=== PATIENT | male | born 1970 | race Caucasian/White ===

== ENCOUNTER 2017-11-06 09:34 | Emergency (ER) | payer MEDICAID ==
[~2017-11-06] VITALS: Ht 170.2 cm; Wt 86.2 kg
[2017-11-06] MEDS ORDERED: BP PILL PO (09:42)
--- NOTE | 2017-11-06 09:50 | NUR ---
PT ARRIVED IN RM 2A WITH A CHIEF C/O LOWER BACKPAIN LEVEL 10, PT STATED THAT ITS RELATED TO HIS GALLBLADDER STONE. AWAKE AND ORIENTEDX3. SEEN AND EXAMINED BY DR SALDAÑA WITH NEW ORDERS.
[2017-11-06] MEDS ORDERED: ONDANSETRON 4 MG/2 ML VIAL IV ONE (10:00)
[2017-11-06] MEDS ORDERED: IV NORMAL SALINE 1000 ML BAG IV ONE (10:00)
[2017-11-06] MEDS ORDERED: MORPHINE SULFATE 2 MG/1 ML DISP.SYRIN IV ONE (10:00)
--- NOTE | 2017-11-06 10:10 | NUR ---
STARTED IV LINE G20 ON THE RIGHT FA AND IVF NS ORDERED.
[2017-11-06] MEDS ORDERED: MORPHINE SULFATE 4 MG/1 ML DISP.SYRIN ONE (10:13)
[2017-11-06] MEDS ORDERED: ONDANSETRON 4 MG/2 ML VIAL ONE (10:13)
--- NOTE | 2017-11-06 10:20 | NUR ---
MEDICATED WITH MORPHINE 4MG SLOW IVP AND ZOFRAN 4MG SLOW IVP FOR PAIN AND N/V PER MD ORDER. LABS DRAWN AND US ABDOMEN DONE AT THE BEDSIDE.
[2017-11-06 10:26] LABS: BASOPHILS % (AUTO) 0.6 % (0.0-2.0); EOSINOPHILS # (AUTO) 0.1 K/uL (0.0-0.7); HEMOGLOBIN 14.4 g/dL (12.5-16.3); LYMPHOCYTES # (AUTO) 1.5 K/uL (20.0-40.0); MEAN CORPUSCULAR HEMOGLOBIN 32.9 uug (23.8-33.4); MEAN CORPUSCULAR HGB CONC 34 g/dL (32.5-36.3); MEAN CORPUSCULAR VOLUME 96.2 fL (73.0-96.2); MONOCYTES # (AUTO) 0.5 K/uL (2.0-10.0); MONOCYTES % (AUTO) 6.5 % (0.0-11.0); NEUTROPHILS # (AUTO) 5.6 K/uL (1.8-8.9); NEUTROPHILS % (AUTO) 72.9 % (38.5-71.5); PLATELET COUNT (AUTO) 277 K/uL (152-348); RED BLOOD CELL COUNT(AUTO) 4.37 MIL/uL (4.06-5.63); WHITE BLOOD COUNT (AUTO) 7.8 K/uL (3.6-10.2)
[2017-11-06 10:38] LABS: BILIRUBIN,DIRECT 0.1 mg/dL (0.0-0.2); BILIRUBIN,TOTAL 0.3 mg/dL (0.2-1.0); CREATININE 0.8 mg/dL (0.6-1.3); ETHANOL < 3 MG/DL (0-0); TOTAL PROTEIN, SERUM 7.2 g/dL (6.4-8.2)
--- NOTE | 2017-11-06 11:30 | NUR ---
PT IS SLEEPING COMFORTABLY. PAIN IS RELIEVED. UA NOT DONE. PT DOES NOT FEEL GOING TO THE BATHROOM.
--- NOTE | 2017-11-06 12:20 | NUR ---
PT REFUSED TO BE ADMITTED AND WATED TO GO HOME AGAINST MEDICAL ADVICE.
[2017-11-06 12:25] VITALS: BP 140/68
--- NOTE | 2017-11-06 12:25 | NUR ---
DISCHARGED AMA, AMBULATORY.
== END 2017-11-06 12:25 | disposition left against medical advice (07) ==
LOC: ER 09:34
DX: K80.50 Calculus of bile duct without cholangitis or cholecystitis without obstruction (principal); I10 Essential (primary) hypertension; Z79.899 Other long term (current) drug therapy
CPT/HCPCS: 36415; 76705; 80048; 80076; 83690; 85025; 93005; 96361; 96374; 96375; 99285; A4663; G0480; J2270; J2405

== ENCOUNTER 2018-05-13 08:01 | Emergency (ER) | payer SELFPAY ==
[~2018-05-13] VITALS: Ht 170.2 cm; Wt 86.2 kg
[~2018-05-13 08:01] MED LIST: BP PILL PO
[2018-05-13] MEDS ORDERED: IOHEXOL 300MG/ML 100 ML INFUS..BTL ONE (08:28)
[2018-05-13] MEDS ORDERED: IV NORMAL SALINE 250 ML IV ONE (08:28)
[2018-05-13] MEDS ORDERED: SWABABLE VALVE TRANSFER SET EA MC ONE (08:28)
[2018-05-13] MEDS ORDERED: IV NORMAL SALINE 1000 ML BAG IV ONE (08:30)
[2018-05-13] MEDS ORDERED: MORPHINE SULFATE 2 MG/1 ML DISP.SYRIN IV ONE (08:30)
[2018-05-13] MEDS ORDERED: ONDANSETRON 4 MG/2 ML VIAL IV ONE (08:30)
[2018-05-13] MEDS ORDERED: ONDANSETRON 4 MG/2 ML VIAL ONE (08:35)
[2018-05-13] MEDS ORDERED: MORPHINE SULFATE 4 MG/1 ML DISP.SYRIN ONE (08:35)
[2018-05-13 08:37] LABS: BASOPHILS % (AUTO) 0.5 % (0.0-2.0); EOSINOPHILS % (AUTO) 0.5 % (0.0-7.0); HEMATOCRIT 41.5 % (36.7-47.1); HEMOGLOBIN 14.7 g/dL (12.5-16.3); LYMPHOCYTES # (AUTO) 0.6 K/uL (20.0-40.0); LYMPHOCYTES % (AUTO) 5.6 % (20.5-51.5); MEAN CORPUSCULAR HEMOGLOBIN 34.1 uug (23.8-33.4); MEAN CORPUSCULAR HGB CONC 36 g/dL (32.5-36.3); MEAN CORPUSCULAR VOLUME 96.2 fL (73.0-96.2); MONOCYTES # (AUTO) 0.4 K/uL (2.0-10.0); MONOCYTES % (AUTO) 4.4 % (0.0-11.0); NEUTROPHILS # (AUTO) 8.7 K/uL (1.8-8.9); PLATELET COUNT (AUTO) 259 K/uL (152-348); RED BLOOD CELL COUNT(AUTO) 4.32 MIL/uL (4.06-5.63); WHITE BLOOD COUNT (AUTO) 9.8 K/uL (3.6-10.2)
[2018-05-13 08:44] LABS: CREATININE 0.9 mg/dL (0.6-1.3); POTASSIUM 3.5 mmol/L (3.5-5.1)
[2018-05-13 08:50] LABS: BILIRUBIN,DIRECT 0.2 mg/dL (0.0-0.2); BILIRUBIN,TOTAL 0.4 mg/dL (0.2-1.0); TOTAL PROTEIN, SERUM 7.1 g/dL (6.4-8.2)
--- NOTE | 2018-05-13 09:39 | NUR ---
Patient discharged to home in stable conditon. Written and verbal after care instructions given. Patient verbalizes understanding of instructions.pt walks in steadty gait, relief of pain and nausea. pt not driving.
[2018-05-13 09:41] VITALS: BP 159/89
== END 2018-05-13 09:42 | disposition home or self-care (01) ==
LOC: ER 08:01
DX: I10 Essential (primary) hypertension (principal); Z90.49 Acquired absence of other specified parts of digestive tract
CPT/HCPCS: 36415; 74177; 80048; 80076; 83690; 84484; 85025; 85730; 93005; 96361; 96374; 96375; 99284; J2270; J2405; Q9967; 70030-TC; A4663; J7030; J7050

== ENCOUNTER 2018-08-18 22:22 | Emergency (ER) | payer MEDICAID ==
[~2018-08-18] VITALS: Ht 175.3 cm; Wt 86.2 kg
--- NOTE | 2018-08-18 22:49 | NUR ---
Dr. Kc at bedside for MSE.
[2018-08-18] MEDS ORDERED: LABETALOL HCL 100 MG/20 ML VIAL IV ONE (23:00)
[2018-08-18] MEDS ORDERED: MORPHINE SULFATE 4 MG/1 ML DISP.SYRIN IV ONE (23:00)
[2018-08-18] MEDS ORDERED: ONDANSETRON 4 MG/2 ML VIAL IV ONE (23:00)
[2018-08-18] MEDS ORDERED: LABETALOL HCL 100 MG/20 ML VIAL ONE (23:00)
[2018-08-18] MEDS ORDERED: MORPHINE SULFATE 4 MG/1 ML DISP.SYRIN ONE (23:09)
[2018-08-18] MEDS ORDERED: ONDANSETRON 4 MG/2 ML VIAL ONE (23:09)
[2018-08-18] MEDS ORDERED: hydrALAZINE HCL 20 MG/1 ML VIAL ONE ×2 (23:15→23:28)
[2018-08-18] MEDS ORDERED: hydrALAZINE HCL 20 MG/1 ML VIAL IV ONE ×2 (23:15→23:30)
[2018-08-18 23:23] LABS: BASOPHILS % (AUTO) 0.5 % (0.0-2.0); EOSINOPHILS # (AUTO) 0.1 K/uL (0.0-0.7); EOSINOPHILS % (AUTO) 0.9 % (0.0-7.0); HEMATOCRIT 47.1 % (36.7-47.1); HEMOGLOBIN 16.4 g/dL (12.5-16.3); LYMPHOCYTES % (AUTO) 23.2 % (20.5-51.5); MEAN CORPUSCULAR HEMOGLOBIN 33.2 uug (23.8-33.4); MEAN CORPUSCULAR HGB CONC 35 g/dL (32.5-36.3); MEAN CORPUSCULAR VOLUME 95.5 fL (73.0-96.2); MONOCYTES # (AUTO) 0.7 K/uL (2.0-10.0); MONOCYTES % (AUTO) 7.8 % (0.0-11.0); NEUTROPHILS # (AUTO) 5.8 K/uL (1.8-8.9); NEUTROPHILS % (AUTO) 67.6 % (38.5-71.5); PLATELET COUNT (AUTO) 269 K/uL (152-348); RED BLOOD CELL COUNT(AUTO) 4.93 MIL/uL (4.06-5.63); WHITE BLOOD COUNT (AUTO) 8.5 K/uL (3.6-10.2)
[2018-08-18 23:36] LABS: BILIRUBIN,DIRECT 0.2 mg/dL (0.0-0.2); BILIRUBIN,TOTAL 0.6 mg/dL (0.2-1.0); CREATININE 0.9 mg/dL (0.6-1.3); POTASSIUM 3.6 mmol/L (3.5-5.1); TOTAL PROTEIN, SERUM 8.1 g/dL (6.4-8.2)
[2018-08-18] MEDS ORDERED: IOHEXOL 300MG/ML 100 ML INFUS..BTL ONE (23:47)
[2018-08-18] MEDS ORDERED: SWABABLE VALVE TRANSFER SET EA MC ONE (23:47)
[2018-08-18] MEDS ORDERED: IV NORMAL SALINE 250 ML IV ONE (23:47)
--- NOTE | 2018-08-18 23:54 | NUR ---
Pt out of ER for CT.
--- NOTE | 2018-08-19 00:13 | NUR ---
Pt back to ER from CT.
[2018-08-19] MEDS ORDERED: MORPHINE SULFATE 4 MG/1 ML DISP.SYRIN ONE (00:21)
[2018-08-19] MEDS ORDERED: MORPHINE SULFATE 4 MG/1 ML DISP.SYRIN IV ONE (00:30)
[2018-08-19] MEDS ORDERED: LABETALOL HCL 100 MG/20 ML VIAL ONE (00:37)
[2018-08-19] MEDS ORDERED: LABETALOL HCL 100 MG/20 ML VIAL IV ONE (00:45)
--- NOTE | 2018-08-19 00:58 | NUR ---
Pt provided urine sample, sent to lab.
[2018-08-19 01:06] LABS: *BILIRUBIN,URIN NEGATIVE (NEGATIVE); *BLOOD, URINE NEGATIVE (NEGATIVE); *CLARITY,URINE CLEAR (CLEAR); *COLOR,URINE YELLOW (YELLOW); *KETONES,URINE NEGATIVE (NEGATIVE); *UROBILINOGEN,URINE 0.2 E.U./dl (NORMAL); LEUKOCYTE ESTERASE ,URINE NEGATIVE (NEGATIVE); NITRITE, URINE NEGATIVE (NEGATIVE); PH,URINE 7.5 (5.0-8.0); UGLUCOSE NEGATIVE (NEGATIVE)
[2018-08-19 01:13] LABS: BACTERIA,URINE NONE SEEN /HPF (NONE SEEN); RBC,URINE 0-3 /HPF (0-3); SQUAMOUS EPITHELIAL CELL,UR FEW /HPF (NONE SEEN); WBC,URINE 0-3 /HPF (0-3)
--- NOTE | 2018-08-19 01:52 | NUR ---
Patient discharged to home in stable conditon. Written and verbal after care instructions given. Patient verbalizes understanding of instructions. Pt ambulated out of ER with steady gait, no acute signs of distress, VSS, all belongings taken, IV site discontinued, pt provided with copies of diagnostic procedure results and a CD of CTA results.
[2018-08-19 01:54] VITALS: BP 132/82
== END 2018-08-19 01:54 | disposition home or self-care (01) ==
LOC: ER 22:23
DX: I16.0 Hypertensive urgency (principal); M54.9 Dorsalgia, unspecified; Z90.49 Acquired absence of other specified parts of digestive tract
CPT/HCPCS: 36415; 71275; 72191; 74175; 80048; 80076; 81001; 83690; 84484; 85025; 85730; 86850; 86900; 86901; 93005; 96374; 96375; 96376; 99284; J0360 ×2; J2270 ×2; J2405; J3490 ×2; Q9967; 70030-TC; A4663; J7050

== ENCOUNTER 2018-09-17 20:49 | Emergency (ER) | payer MEDICAID ==
[~2018-09-17] VITALS: Ht 177.8 cm; Wt 83.9 kg
--- NOTE | 2018-09-17 21:00 | NUR ---
Patient came to Er with chief complain of Hypertension. Per Patient he felt diffiferent in the past 2-3 hours and reported Hx of HTN. Patient also with complain of abdominal pain on left upper quadrant. Patient AAOx4. Can speak in full sentences. Denies any respiratory distress. Denies any CP/N/V. No /GI concern. Bed on low and lock position. Safety and fall precaution initiated.
--- NOTE | 2018-09-17 21:08 | NUR ---
LEODAN HOYT at [facility] for MSE.
[2018-09-17] MEDS ORDERED: NITROGLYCERIN 0.4 MG/TAB BOTTLE SL ONE ×2 (21:15→21:25)
[2018-09-17] MEDS ORDERED: NITROGLYCERIN OINT 1 GM PACKET TP ONE ×2 (21:15→21:24)
[2018-09-17] MEDS ORDERED: ONDANSETRON 4 MG/2 ML VIAL IV ONE (21:15)
[2018-09-17] MEDS ORDERED: ASPIRIN 81 MG TAB.CHEW PO ONE (21:15)
[2018-09-17] MEDS ORDERED: OXYCODONE/APAP 5-325 MG TABLET PO ONE (21:15)
[2018-09-17] MEDS ORDERED: CLONIDINE HCL 0.1 MG TABLET PO ONE ×2 (21:15→22:45)
[2018-09-17] MEDS ORDERED: ASPIRIN 81 MG TAB.CHEW ONE (21:24)
[2018-09-17] MEDS ORDERED: OXYCODONE/APAP 5-325 MG TABLET ONE (21:25)
[2018-09-17] MEDS ORDERED: ONDANSETRON 4 MG/2 ML VIAL ONE (21:25)
[2018-09-17] MEDS ORDERED: CLONIDINE HCL 0.1 MG TABLET ONE ×2 (21:25→22:47)
--- NOTE | 2018-09-17 21:25 | NUR ---
CXR done at bedside.
--- NOTE | 2018-09-17 21:34 | NUR ---
Patient refused to take Zofran and Percocet. ER made aware.
[2018-09-17 21:35] LABS: BASOPHILS # (AUTO) 0.1 K/uL (0.0-8.0); BASOPHILS % (AUTO) 0.7 % (0.0-2.0); EOSINOPHILS % (AUTO) 0.2 % (0.0-7.0); HEMATOCRIT 43.7 % (36.7-47.1); HEMOGLOBIN 15.1 g/dL (12.5-16.3); LYMPHOCYTES % (AUTO) 30.2 % (20.5-51.5); MEAN CORPUSCULAR HEMOGLOBIN 32.9 uug (23.8-33.4); MEAN CORPUSCULAR HGB CONC 35 g/dL (32.5-36.3); MEAN CORPUSCULAR VOLUME 95.3 fL (73.0-96.2); MONOCYTES # (AUTO) 0.7 K/uL (2.0-10.0); NEUTROPHILS # (AUTO) 6.1 K/uL (1.8-8.9); NEUTROPHILS % (AUTO) 61.9 % (38.5-71.5); PLATELET COUNT (AUTO) 255 K/uL (152-348); RED BLOOD CELL COUNT(AUTO) 4.59 MIL/uL (4.06-5.63); WHITE BLOOD COUNT (AUTO) 9.9 K/uL (3.6-10.2)
[2018-09-17 21:36] LABS: CREATININE 0.9 mg/dL (0.6-1.3); POTASSIUM 3.6 mmol/L (3.5-5.1)
[2018-09-17 21:49] LABS: BILIRUBIN,DIRECT 0.2 mg/dL (0.0-0.2); BILIRUBIN,TOTAL 0.6 mg/dL (0.2-1.0); TOTAL PROTEIN, SERUM 7.6 g/dL (6.4-8.2)
[2018-09-17] MEDS ORDERED: LABETALOL HCL 100 MG/20 ML VIAL ONE (22:15)
[2018-09-17] MEDS ORDERED: LORAZEPAM 2 MG/1 ML VIAL ONE (22:15)
[2018-09-17] MEDS ORDERED: LABETALOL HCL 100 MG/20 ML VIAL IV ONE (22:15)
[2018-09-17] MEDS ORDERED: LORAZEPAM 2 MG/1 ML VIAL IV ONE (22:15)
--- NOTE | 2018-09-17 23:00 | NUR ---
Patient resting in bed. Denies any CP or SOB. Pain on abdminal area left upper quadrant tolerable at this time per patient. In no respiratory distress. Continue to monitor.
--- NOTE | 2018-09-18 00:20 | NUR ---
Education Dean at bedside for blood draw. Patient remains AAOX4. In no respiratory distress. Denies any SOB or CP at this time.
--- NOTE | 2018-09-18 01:12 | NUR ---
IV removed. Catheter intact and site benign. Pressure and 4x4 gauze applied to site. No bleeding noted.
--- NOTE | 2018-09-18 01:17 | NUR ---
Patient discharged to home in stable conditon with no distress noted. Written and verbal after care instructions given. Patient verbalizes understanding of instructions. Walked out of ER with no distress noted
[2018-09-18 01:18] VITALS: BP 152/93
== END 2018-09-18 01:22 | disposition home or self-care (01) ==
LOC: ER 20:49
DX: I10 Essential (primary) hypertension (principal); R07.89 Other chest pain; Z90.49 Acquired absence of other specified parts of digestive tract
CPT/HCPCS: 36415 ×2; 71045; 80048; 80076; 83880; 84484 ×2; 85025; 93005; 96374; 96375; 99284; J2060; J3490; 70030-TC; A4663; J2405

== ENCOUNTER 2018-09-20 01:05 | Emergency (ER) | payer MEDICAID ==
[~2018-09-20] VITALS: Ht 170.2 cm; Wt 79.4 kg
--- NOTE | 2018-09-20 01:10 | NUR ---
Received pt. in bed 4A A/O x 4 speaks marcio in full complete sentences. Lying supine on gurney with HOB elevated 45 degrees. Stated to this flex o writer operator that he was here on 09/18/18 and now he has lower back pain for the past 2 hours and stated that he has gallstones. His pain is constant and sharp /10. Awaiting to be seen by Dr. Thompson.
[2018-09-20] MEDS ORDERED: CLON0.1T PO (01:23)
[2018-09-20] MEDS ORDERED: IV NORMAL SALINE 1000 ML BAG IV ONE (02:00)
[2018-09-20] MEDS ORDERED: HYDROMORPHONE 1 MG/1 ML DISP.SYRIN IV ONE (02:00)
[2018-09-20] MEDS ORDERED: ONDANSETRON 4 MG/2 ML VIAL IV ONE (02:00)
[2018-09-20 02:11] LABS: BASOPHILS % (AUTO) 0.6 % (0.0-2.0); EOSINOPHILS # (AUTO) 0.1 K/uL (0.0-0.7); EOSINOPHILS % (AUTO) 1.6 % (0.0-7.0); HEMOGLOBIN 14.5 g/dL (12.5-16.3); LYMPHOCYTES # (AUTO) 2.6 K/uL (20.0-40.0); LYMPHOCYTES % (AUTO) 35.3 % (20.5-51.5); MEAN CORPUSCULAR HGB CONC 35 g/dL (32.5-36.3); MEAN CORPUSCULAR VOLUME 95.5 fL (73.0-96.2); MONOCYTES # (AUTO) 0.6 K/uL (2.0-10.0); MONOCYTES % (AUTO) 7.8 % (0.0-11.0); NEUTROPHILS # (AUTO) 4.1 K/uL (1.8-8.9); NEUTROPHILS % (AUTO) 54.7 % (38.5-71.5); PLATELET COUNT (AUTO) 197 K/uL (152-348); WHITE BLOOD COUNT (AUTO) 7.4 K/uL (3.6-10.2)
[2018-09-20] MEDS ORDERED: HYDROMORPHONE 1 MG/1 ML DISP.SYRIN ONE (02:24)
[2018-09-20] MEDS ORDERED: ONDANSETRON 4 MG/2 ML VIAL ONE (02:24)
[2018-09-20 02:33] LABS: ALANINE AMINOTRANSFERASE 72 U/L (16-63); ALKALINE PHOSPHATASE 82 U/L (50-136); ASPARTATE AMINOTRANSFERASE 30 U/L (15-37); BILIRUBIN,DIRECT 0.2 mg/dL (0.0-0.2); BILIRUBIN,TOTAL 0.5 mg/dL (0.2-1.0); CARBON DIOXIDE 26 mmol/L (21-32); CHLORIDE 106 mmol/L (98-107); CREATININE 0.6 mg/dL (0.6-1.3); GLUCOSE 111 mg/dL (74-106); LIPASE 176 U/L (73-393); POTASSIUM 4.2 mmol/L (3.5-5.1); UREA NITROGEN, BLOOD 9 mg/dL (7-18)
[2018-09-20] MEDS ORDERED: hydrALAZINE HCL 20 MG/1 ML VIAL IV ONE (02:45)
[2018-09-20] MEDS ORDERED: LABETALOL HCL 100 MG/20 ML VIAL IV ONE (02:45)
[2018-09-20 02:56] VITALS: BP 206/123
[2018-09-20] MEDS ORDERED: hydrALAZINE HCL 20 MG/1 ML VIAL ONE (02:59)
[2018-09-20] MEDS ORDERED: LABETALOL HCL 100 MG/20 ML VIAL ONE (02:59)
--- NOTE | 2018-09-20 03:00 | NUR ---
Pt stated he has 2/[address] back now and Dr[address] Thompson informed of current B/P and pulse readings before and after medications given at 0255 and at 0256 refer to eMAR please. Pt. is A/O x 4 speaking clearly in full complete sentences.
== END 2018-09-20 03:45 | disposition home or self-care (01) ==
LOC: ER 01:07
DX: I16.0 Hypertensive urgency (principal); Z90.49 Acquired absence of other specified parts of digestive tract; Z79.899 Other long term (current) drug therapy
CPT/HCPCS: 36415; 80048; 80076; 83690; 84484; 85025; 85730; 93005; 96374; 96375; 99284; J0360; J1170; J2405; J3490; 70030-TC; A4663; J7030

== ENCOUNTER 2019-05-30 23:42 | Emergency (ER) | payer MEDICAID ==
[~2019-05-30] VITALS: Ht 170.2 cm; Wt 86.2 kg
[~2019-05-30 23:42] MED LIST changes: -BP PILL PO; +CLON0.1T PO
--- NOTE | 2019-05-31 00:14 | NUR ---
Dr. Fierro at bedside for MSE.
[2019-05-31] MEDS ORDERED: CLONIDINE HCL 0.1 MG TABLET PO ONE ×2 (00:15→03:30)
[2019-05-31] MEDS ORDERED: ONDANSETRON 4 MG/2 ML VIAL IV ONE (00:15)
[2019-05-31] MEDS ORDERED: NITROGLYCERIN 0.4 MG/TAB BOTTLE SL ONE ×2 (00:15→00:37)
[2019-05-31] MEDS ORDERED: HYDROMORPHONE 1 MG/1 ML DISP.SYRIN IV ONE (00:15)
[2019-05-31 00:35] LABS: BASOPHILS # (AUTO) 0.1 K/uL (0.0-8.0); BASOPHILS % (AUTO) 0.9 % (0.0-2.0); EOSINOPHILS % (AUTO) 0.4 % (0.0-7.0); HEMATOCRIT 41.8 % (36.7-47.1); HEMOGLOBIN 14.4 g/dL (12.5-16.3); LYMPHOCYTES # (AUTO) 3.7 K/uL (20.0-40.0); LYMPHOCYTES % (AUTO) 30.9 % (20.5-51.5); MEAN CORPUSCULAR HEMOGLOBIN 32.9 uug (23.8-33.4); MEAN CORPUSCULAR HGB CONC 34 g/dL (32.5-36.3); MEAN CORPUSCULAR VOLUME 95.7 fL (73.0-96.2); MONOCYTES # (AUTO) 0.9 K/uL (2.0-10.0); MONOCYTES % (AUTO) 7.6 % (0.0-11.0); NEUTROPHILS # (AUTO) 7.3 K/uL (1.8-8.9); NEUTROPHILS % (AUTO) 60.2 % (38.5-71.5); PLATELET COUNT (AUTO) 243 K/uL (152-348); RED BLOOD CELL COUNT(AUTO) 4.37 MIL/uL (4.06-5.63); WHITE BLOOD COUNT (AUTO) 12.1 K/uL (3.6-10.2)
[2019-05-31] MEDS ORDERED: ONDANSETRON 4 MG/2 ML VIAL ONE (00:36)
[2019-05-31] MEDS ORDERED: HYDROMORPHONE 1 MG/1 ML DISP.SYRIN ONE (00:36)
[2019-05-31] MEDS ORDERED: CLONIDINE HCL 0.1 MG TABLET ONE ×2 (00:37→03:40)
[2019-05-31 01:03] LABS: BILIRUBIN,DIRECT 0.2 mg/dL (0.0-0.2); BILIRUBIN,TOTAL 0.8 mg/dL (0.2-1.0); CREATININE 0.7 mg/dL (0.6-1.3); TOTAL PROTEIN, SERUM 8.2 g/dL (6.4-8.2)
--- NOTE | 2019-05-31 01:15 | NUR ---
Ultrasound at bedside.
[2019-05-31 01:16] LABS: POTASSIUM 2.8 mmol/L (3.5-5.1)
[2019-05-31] MEDS ORDERED: IV NORMAL SALINE 250 ML IV ONE (01:41)
[2019-05-31] MEDS ORDERED: IOHEXOL 350 100 ML INFUS..BTL ONE (01:41)
[2019-05-31] MEDS ORDERED: SWABABLE VALVE TRANSFER SET EA MC ONE (01:41)
--- NOTE | 2019-05-31 01:55 | NUR ---
Pt out of ER for CT.
--- NOTE | 2019-05-31 02:10 | NUR ---
Pt back to ER from CT.
[2019-05-31] MEDS ORDERED: POTASSIUM CHLORIDE 20 MEQ TAB.PRT.SR PO ONE (02:15)
[2019-05-31] MEDS ORDERED: POTASSIUM CHLORIDE 20 MEQ TAB.PRT.SR ONE (02:25)
[2019-05-31] MEDS ORDERED: ENALAPRILAT DIHYDRATE 1.25 MG/1 ML VIAL IV ONE ×2 (03:30→03:40)
--- NOTE | 2019-05-31 04:31 | NUR ---
Patient discharged to home in stable conditon. Written and verbal after care instructions given. Patient verbalizes understanding of instructions. Pt ambulated out of ER with steady gait, no acute signs of distress, VSS, all belongings taken, IV site discontinued.
[2019-05-31 04:32] VITALS: BP 167/96
== END 2019-05-31 04:32 | disposition home or self-care (01) ==
LOC: ER 23:45
DX: K80.50 Calculus of bile duct without cholangitis or cholecystitis without obstruction (principal); I10 Essential (primary) hypertension; Z90.49 Acquired absence of other specified parts of digestive tract; Z79.899 Other long term (current) drug therapy
CPT/HCPCS: 36415; 71275; 74175; 76705; 80048; 80076; 83690; 84484 ×2; 85025; 85730; 93005; 96374; 96375; 99284; J1170; J2405; J3490; Q9967; 70030-TC; A4663; J7050

== ENCOUNTER 2020-01-02 05:55 | Inpatient (IN) | payer MEDICAID ==
[~2020-01-02] VITALS: Ht 170.2 cm; Wt 99.3 kg
--- NOTE | 2020-01-02 06:10 | NUR ---
Patient walked into ER c/o back pain radiating to abdominal pain that started 3hrs with hypertension. Patient denies CP, SOB, N/V.
[2020-01-02] MEDS ORDERED: KETOROLAC TROMETHAMINE 15 MG INJ ONE (06:29)
[2020-01-02] MEDS ORDERED: CLONIDINE HCL 0.1 MG TABLET ONE (06:29)
[2020-01-02] MEDS ORDERED: IV NORMAL SALINE 1000 ML BAG IV ONE ×2 (06:30→08:45)
[2020-01-02] MEDS ORDERED: CLONIDINE HCL 0.1 MG TABLET PO ONE (06:30)
[2020-01-02] MEDS ORDERED: HYDROMORPHONE 1 MG/1 ML DISP.SYRIN IV ONE (06:30)
[2020-01-02] MEDS ORDERED: ONDANSETRON 4 MG/2 ML VIAL ONE ×3 (06:30→11:23)
[2020-01-02] MEDS ORDERED: KETOROLAC TROMETHAMINE 15 MG INJ IVP ONE (06:30)
[2020-01-02] MEDS ORDERED: HYDROMORPHONE 1 MG/1 ML DISP.SYRIN ONE (06:30)
[2020-01-02] MEDS ORDERED: ONDANSETRON 4 MG/2 ML VIAL IV ONE ×3 (06:30→11:30)
[2020-01-02 06:42] LABS: BASOPHILS # (AUTO) 0.1 K/uL (0.0-8.0); BASOPHILS % (AUTO) 0.8 % (0.0-2.0); EOSINOPHILS % (AUTO) 0.2 % (0.0-7.0); HEMATOCRIT 42.7 % (36.7-47.1); HEMOGLOBIN 14.8 g/dL (12.5-16.3); LYMPHOCYTES # (AUTO) 2.2 K/uL (20.0-40.0); LYMPHOCYTES % (AUTO) 21.6 % (20.5-51.5); MEAN CORPUSCULAR HEMOGLOBIN 33.3 uug (23.8-33.4); MEAN CORPUSCULAR HGB CONC 35 g/dL (32.5-36.3); MEAN CORPUSCULAR VOLUME 96.2 fL (73.0-96.2); MONOCYTES # (AUTO) 0.5 K/uL (2.0-10.0); NEUTROPHILS # (AUTO) 7.2 K/uL (1.8-8.9); NEUTROPHILS % (AUTO) 72.4 % (38.5-71.5); PLATELET COUNT (AUTO) 296 K/uL (152-348); RED BLOOD CELL COUNT(AUTO) 4.44 MIL/uL (4.06-5.63)
--- NOTE | 2020-01-02 06:44 | NUR ---
BP on left arm at this time is 212/128. ERMD aware.
[2020-01-02] MEDS ORDERED: LABETALOL HCL 100 MG/20 ML VIAL IV ONE ×3 (06:45→07:30)
[2020-01-02] MEDS ORDERED: LABETALOL HCL 100 MG/20 ML VIAL ONE ×3 (06:46→07:28)
[2020-01-02 06:53] LABS: CREATININE 0.9 mg/dL (0.6-1.3); POTASSIUM 3.2 mmol/L (3.5-5.1)
[2020-01-02 06:59] LABS: BILIRUBIN,DIRECT 0.2 mg/dL (0.0-0.2); BILIRUBIN,TOTAL 0.3 mg/dL (0.2-1.0)
[2020-01-02] MEDS ORDERED: IOHEXOL 300MG/ML 100 ML INFUS..BTL ONE (07:17)
[2020-01-02] MEDS ORDERED: IV NORMAL SALINE 250 ML IV ONE (07:17)
[2020-01-02] MEDS ORDERED: SWABABLE VALVE TRANSFER SET EA MC ONE (07:17)
[2020-01-02] MEDS ORDERED: hydrALAZINE HCL 20 MG/1 ML VIAL ONE (07:47)
[2020-01-02] MEDS ORDERED: MORPHINE SULFATE 4 MG/1 ML DISP.SYRIN ONE ×2 (08:43→11:23)
[2020-01-02] MEDS ORDERED: MORPHINE SULFATE 4 MG/1 ML DISP.SYRIN IV ONE ×2 (08:45→11:30)
[2020-01-02] MEDS ORDERED: hydrALAZINE HCL 20 MG/1 ML VIAL IV ONE (08:45)
--- NOTE | 2020-01-02 09:10 | NUR ---
Patient back from CT depto. with Heart rate of 84, 97% on RA sbp of 153/93.At this time pt. with c/of pain 8/10 and verbalized been unable to initiate urine stream. Notified, and orders received.
[2020-01-02] MEDS ORDERED: LIDOCAINE 2% (UROJET) 10 ML JELLY MM ONE ×2 (09:22→09:30)
--- NOTE | 2020-01-02 09:23 | NUR ---
Patient educated on catheter insertion need but patient wanted to try one more time and this time patient able to urinate as stated.
--- NOTE | 2020-01-02 10:16 | NUR ---
urine collected and taken to lab.
[2020-01-02 10:19] LABS: *BILIRUBIN,URIN NEGATIVE (NEGATIVE); *BLOOD, URINE NEGATIVE (NEGATIVE); *CLARITY,URINE CLEAR (CLEAR); *COLOR,URINE YELLOW (YELLOW); *KETONES,URINE NEGATIVE (NEGATIVE); *UROBILINOGEN,URINE 0.2 E.U./dl (NORMAL); LEUKOCYTE ESTERASE ,URINE NEGATIVE (NEGATIVE); NITRITE, URINE NEGATIVE (NEGATIVE); PH,URINE 6.5 (5.0-8.0); UGLUCOSE NEGATIVE (NEGATIVE)
[2020-01-02 11:47] LABS: BASOPHILS # (AUTO) 0.1 K/uL (0.0-8.0); BASOPHILS % (AUTO) 0.8 % (0.0-2.0); EOSINOPHILS % (AUTO) 0.1 % (0.0-7.0); HEMATOCRIT 41.1 % (36.7-47.1); HEMOGLOBIN 14.2 g/dL (12.5-16.3); LYMPHOCYTES # (AUTO) 3.3 K/uL (20.0-40.0); LYMPHOCYTES % (AUTO) 33.1 % (20.5-51.5); MEAN CORPUSCULAR HEMOGLOBIN 33.2 uug (23.8-33.4); MEAN CORPUSCULAR HGB CONC 34 g/dL (32.5-36.3); MEAN CORPUSCULAR VOLUME 96.4 fL (73.0-96.2); MONOCYTES # (AUTO) 0.8 K/uL (2.0-10.0); MONOCYTES % (AUTO) 8.4 % (0.0-11.0); NEUTROPHILS # (AUTO) 5.7 K/uL (1.8-8.9); NEUTROPHILS % (AUTO) 57.6 % (38.5-71.5); PLATELET COUNT (AUTO) 277 K/uL (152-348); RED BLOOD CELL COUNT(AUTO) 4.26 MIL/uL (4.06-5.63); WHITE BLOOD COUNT (AUTO) 9.9 K/uL (3.6-10.2)
[2020-01-02 11:51] LABS: CREATININE 0.9 mg/dL (0.6-1.3); POTASSIUM 3.1 mmol/L (3.5-5.1)
--- NOTE | 2020-01-02 12:16 | NUR ---
Report given to Raji Davidson. Patient will be taken up to room 302. AAOx4. with latest xbp of 177/106 and heart rate of 70. afebrile. sats on RA of 96%. Addendum: 01/02/20 at 1217 by FOUZIA Pt. will be taken via wheelchair.
[2020-01-02] MEDS ORDERED: ACETAMINOPHEN 325 MG TABLET PO PRN (12:30)
[2020-01-02] MEDS ORDERED: MAGNESIUM HYDROXIDE 30 ML LIQUID UDC PO PRN (12:30)
[2020-01-02] MEDS ORDERED: Z GUARD REMEDY PASTE 57 GM TUBE TOP PRN (12:30)
[2020-01-02] MEDS ORDERED: ONDANSETRON 4 MG/2 ML VIAL IV PRN (12:30)
[2020-01-02 12:53] VITALS: BP 166/99
[2020-01-02] MEDS ORDERED: hydrALAZINE HCL 20 MG/1 ML VIAL IV PRN (13:15)
[2020-01-02] MEDS ORDERED: hydrALAZINE HCL IV 20 MG in IV NORMAL SALINE 50 ML IV SCH (14:00)
[2020-01-02] MEDS: HYDROCODONE/APAP 5-325MG TABLET PO PRN (14:57)
--- NOTE | 2020-01-02 15:06 | NUR ---
Patient was admitted from ER via Wheelchair. Patient with Diagnosis of Hypertensive Urgency under Dr. Graves. Patient is awake, alert and verbally responsive. No signs of Distress noted. No SOB. Afebrile. No complain of pain at this time. Right AC IV site intact and patent. kept clean and comfortable. kept the call light within easy reach. Will continue to monitor.
[2020-01-02 15:25] VITALS: BP 149/92
[2020-01-02] MEDS ORDERED: MORPHINE SULFATE 2 MG/1 ML DISP.SYRIN IM PRN (16:00)
[2020-01-02] MEDS: CLONIDINE HCL 0.1 MG TABLET PO SCH (16:12)
[2020-01-02 20:14] VITALS: BP 137/75
--- NOTE | 2020-01-02 20:36 | NUR ---
RECD PT IN BED, ALERT ,ORIENTED,NO ACUTE DISTRESS NOTED,NO COMPLAINTS PRESENTED.AFEBILE, BP TAKEN AND RECORDED,137/75.RESTING QUIETLY IN BED.NEEDS ATTENDED TO.
[2020-01-02] MEDS: ZOLPIDEM 5 MG TABLET PO PRN (21:09)
[2020-01-02] MEDS ORDERED: POTASSIUM CHLORIDE 20 MEQ TAB.PRT.SR PO ONE (21:30)
[2020-01-02] MEDS ORDERED: MVI ADULT 10 ML VIAL=1 AMP 10 ML, FOLIC ACID 1 MG, THIAMINE HCL INJ 100 MG, MAGNESIUM S... IV PRN ×5 (21:30)
--- NOTE | 2020-01-02 21:48 | NUR ---
DR. JUNIOR VISITED PT, NEW ORDER OF POTASSIUM GIVEN FOR A LEVEL OF 3.1, REQUESTED SLEEPING PILL ,AMBIEN 5 MG GIVEN ORDERED.
--- NOTE | 2020-01-02 22:47 | NUR ---
SLEEPING SOUNDLY AT THIS TIME,NO ACUTE DISTRESS NOTED.TELE SINUS SAMIA 59,
[2020-01-02] MEDS ORDERED: THIAMINE HCL 200 MG/2 ML VIAL ONE (23:59)
[2020-01-02] MEDS ORDERED: FOLIC ACID 5 MG/ML VIAL IV ONE (23:59)
[2020-01-02] MEDS ORDERED: MAGNESIUM SULFATE 1 GM/2 ML VIAL ONE (23:59)
[2020-01-03 00:14] VITALS: BP 146/82
--- NOTE | 2020-01-03 00:49 | NUR ---
able to verbalize understanding of disease process Addendum: 01/03/20 at 0053 by YOEL ARGUETA RN Amended: Links added.
--- NOTE | 2020-01-03 00:50 | NUR ---
1 liter of banana bag administered as ordered, infusing at 50 ml/hr via peripheral line on ,npo except meds instructed to pt. , slept on and off.
[2020-01-03] MEDS ORDERED: ALBUTEROL SULFATE 2.5 MG/3 ML NEBU ONE (02:29)
[2020-01-03] MEDS ORDERED: IPRATROPIUM BROMIDE 0.5 MG/2.5 ML NEBU ONE (02:30)
--- NOTE | 2020-01-03 04:54 | NUR ---
UP AND ABOUT, VOIDED FREELY WELL, IV F STILL INFUSING WELL,STILL SINUS SAMIA 51, RESTED FAIRLY WELL.NO COMPLAINTS OF ABDOMINAL PAIN.
--- NOTE | 2020-01-03 06:23 | NUR ---
ENDORSED TO AM SHIFT IN FAIR CONDITION. NO DISTRESS NOTED.NPO MAINTAINED.
[2020-01-03 06:50] LABS: BASOPHILS % (AUTO) 0.4 % (0.0-2.0); EOSINOPHILS # (AUTO) 0.1 K/uL (0.0-0.7); EOSINOPHILS % (AUTO) 0.9 % (0.0-7.0); HEMATOCRIT 38.2 % (36.7-47.1); HEMOGLOBIN 13.1 g/dL (12.5-16.3); LYMPHOCYTES # (AUTO) 1.8 K/uL (20.0-40.0); LYMPHOCYTES % (AUTO) 26.3 % (20.5-51.5); MEAN CORPUSCULAR HEMOGLOBIN 33.5 uug (23.8-33.4); MEAN CORPUSCULAR HGB CONC 34 g/dL (32.5-36.3); MEAN CORPUSCULAR VOLUME 97.9 fL (73.0-96.2); MONOCYTES # (AUTO) 0.5 K/uL (2.0-10.0); MONOCYTES % (AUTO) 8.1 % (0.0-11.0); NEUTROPHILS # (AUTO) 4.3 K/uL (1.8-8.9); NEUTROPHILS % (AUTO) 64.3 % (38.5-71.5); PLATELET COUNT (AUTO) 237 K/uL (152-348); WHITE BLOOD COUNT (AUTO) 6.7 K/uL (3.6-10.2)
[2020-01-03 07:34] LABS: MAGNESIUM 1.8 mg/dL (1.8-2.4); PHOSPHOROUS 3.7 mg/dL (2.5-4.9); POTASSIUM 4.8 mmol/L (3.5-5.1)
[2020-01-03] MEDS ORDERED: CLON0.1T PO (07:39)
[2020-01-03] MEDS ORDERED: LOSA50TA3 PO (07:39)
--- NOTE | 2020-01-03 08:00 | NUR ---
SEEN BY DR JUNIOR DISCUSSED DC PLANNING AND HOME MEDICATION. PATIENT REMAINS STABLE
[2020-01-03] MEDS: HYDROCODONE/APAP 5-325MG TABLET PO PRN (08:24)
[2020-01-03] MEDS: CLONIDINE HCL 0.1 MG TABLET PO SCH (08:26)
[2020-01-03 09:15] VITALS: BP 177/100
[2020-01-03 10:26] VITALS: BP 151/92
--- NOTE | 2020-01-03 10:33 | NUR ---
DISCHARGED HOME STABLE WITH HOME MEDS AND FOLLOW-UP INSTRUCTION LATEST BP 151/86.
[2020-01-04] MEDS ORDERED: FOLIC ACID 1 MG TABLET PO SCH (09:00)
[2020-01-04] MEDS ORDERED: THIAMINE HCL 100 MG TABLET PO SCH (09:00)
== END 2020-01-03 10:30 | disposition home or self-care (01) | DRG 199 ==
LOC: ER 06:04 → TELE-TD3 12:09
PROVIDERS: ADMIT Family Medicine; ATTEND Family Medicine
DX: I16.0 Hypertensive urgency (principal); E87.6 Hypokalemia; E87.2 Acidosis; E66.9 Obesity, unspecified; Z91.14 Patient's other noncompliance with medication regimen; Z68.34 Body mass index [BMI] 34.0-34.9, adult; R10.9 Unspecified abdominal pain; K80.20 Calculus of gallbladder without cholecystitis without obstruction; K57.30 Diverticulosis of large intestine without perforation or abscess without bleeding; Y90.5 Blood alcohol level of 100-119 mg/100 ml; F10.129 Alcohol abuse with intoxication, unspecified
CPT/HCPCS: 36415; 70030-TC; 71045; 83605; 83690; 83735; 84100; 85025; 93005; A4663; G0378; G0480; J0360; J1170; J1885; J2270; J2405; J3411; J3475; J3490; J3590; J7030; J7042; J7050; Q9967

== ENCOUNTER 2020-07-15 18:35 | Inpatient (IN) | payer SELFPAY ==
[~2020-07-15] VITALS: Ht 175.3 cm; Wt 77.2 kg
[~2020-07-15 18:35] MED LIST changes: +LOSA50TA3 PO
[2020-07-15] MEDS ORDERED: ONDANSETRON 4 MG/2 ML VIAL IV ONE (19:00)
[2020-07-15] MEDS ORDERED: KETOROLAC TROMETHAMINE 15 MG INJ IVP ONE (19:00)
[2020-07-15 19:39] LABS: BASOPHILS % (AUTO) 0.3 % (0.0-2.0); EOSINOPHILS % (AUTO) 0.5 % (0.0-7.0); HEMATOCRIT 42.1 % (36.7-47.1); HEMOGLOBIN 14.6 g/dL (12.5-16.3); LYMPHOCYTES % (AUTO) 20.5 % (20.5-51.5); MEAN CORPUSCULAR HEMOGLOBIN 32.5 uug (23.8-33.4); MEAN CORPUSCULAR HGB CONC 35 g/dL (32.5-36.3); MEAN CORPUSCULAR VOLUME 93.5 fL (73.0-96.2); MONOCYTES # (AUTO) 0.9 K/uL (2.0-10.0); MONOCYTES % (AUTO) 9.1 % (0.0-11.0); NEUTROPHILS # (AUTO) 6.9 K/uL (1.8-8.9); NEUTROPHILS % (AUTO) 69.6 % (38.5-71.5); PLATELET COUNT (AUTO) 264 K/uL (152-348); RED BLOOD CELL COUNT(AUTO) 4.51 MIL/uL (4.06-5.63); WHITE BLOOD COUNT (AUTO) 9.9 K/uL (3.6-10.2)
[2020-07-15 19:45] LABS: CREATININE 0.9 mg/dL (0.6-1.3)
[2020-07-15 19:50] LABS: BILIRUBIN,DIRECT 0.3 mg/dL (0.0-0.2); BILIRUBIN,TOTAL 0.8 mg/dL (0.2-1.0); TOTAL PROTEIN, SERUM 7.9 g/dL (6.4-8.2)
--- NOTE | 2020-07-15 20:08 | NUR ---
mix technician in room with patient to do U/S.
--- NOTE | 2020-07-15 20:08 | NUR ---
Note kaycee in EDM - 07/15/20 at 2021 by CHIRAG Patient is sitting upright on the bed, on his phone. No acute distress is noted at this time.
--- NOTE | 2020-07-15 20:15 | NUR ---
Patient sitting upright on the bed, using his phone. No acute distress is noted at this time.
--- NOTE | 2020-07-15 20:49 | NUR ---
pANEL CALL TO [facility] [employer] PLACED AT THIS TIME
[2020-07-15] MEDS ORDERED: IV NORMAL SALINE 1,000 ML IV ONE ×2 (20:50→21:00)
[2020-07-15] MEDS ORDERED: CEFTRIAXONE 1 G in IV DEXTROSE 5% 50 ML IV ONE (21:00)
[2020-07-15] MEDS ORDERED: MORPHINE SULFATE 4 MG/1 ML DISP.SYRIN IV ONE (21:00)
[2020-07-15] MEDS ORDERED: METRONIDAZOLE 500 MG/NS 100 ML PIGGYBACK IV ONE (21:00)
[2020-07-15] MEDS ORDERED: MORPHINE SULFATE 4 MG/1 ML DISP.SYRIN ONE (21:03)
[2020-07-15] MEDS ORDERED: CEFTRIAXONE /D5W 50ML IVPB **ER PYXIS IV ONE (21:05)
[2020-07-15] MEDS ORDERED: METRONIDAZOLE 500 MG/NS 100ML 100 ML IV ONE (21:05)
--- NOTE | 2020-07-15 21:40 | NUR ---
Patient resting on hospital bed, using his cellphone, no acute distress is noted.
--- NOTE | 2020-07-15 21:50 | NUR ---
Spoke with PRISCILLA Peng to give report, states will call back.
--- NOTE | 2020-07-15 22:05 | NUR ---
Pt. admitted to med surg , under care of Matt Finley. Report to Angeline WELLS on Med Surg Belongs List completed
--- NOTE | 2020-07-15 22:15 | NUR ---
Received patient from ED admitted for Acute Cholecystitis under Dr. Matt Finley. Patient is AAOx4 Angolan and Tanzanian speaking. No s/s of acute distress noted at this time. Pt on RA denies SOB. Right AC patent and intact. Patient c/o abdominal pain and will medicate per orders. Will continue to monitor for safety
[2020-07-15] MEDS ORDERED: SWABABLE VALVE TRANSFER SET EA MC ONE ×2 (22:16→22:54)
[2020-07-15] MEDS ORDERED: IV NORMAL SALINE 250 ML IV ONE ×2 (22:16→22:54)
[2020-07-15] MEDS ORDERED: IOHEXOL 300MG/ML 100 ML INFUS..BTL ONE ×2 (22:16→22:54)
[2020-07-15 22:24] VITALS: BP 149/99
[2020-07-15] MEDS ORDERED: Z GUARD REMEDY PASTE 57 GM TUBE TOP PRN (23:15)
[2020-07-15] MEDS ORDERED: ONDANSETRON 4 MG/2 ML VIAL IV PRN (23:15)
[2020-07-15] MEDS: IV LACTATED RINGERS SOLUTION 1,000 ML IV PRN (23:58)
[2020-07-15] MEDS: PIPERACILLIN SODIUM/TAZOBACTAM 3.375 G in IV DEXTROSE 5% 50 ML IV SCH (23:58)
--- NOTE | 2020-07-16 01:05 | NUR ---
Patient down to radiology for NM HIDA
[2020-07-16] MEDS: MORPHINE SULFATE 2 MG/1 ML DISP.SYRIN IV PRN ×4 (04:29→21:14)
[2020-07-16 04:32] VITALS: BP 125/86
[2020-07-16] MEDS: PIPERACILLIN SODIUM/TAZOBACTAM 3.375 G in IV DEXTROSE 5% 50 ML IV SCH (06:13)
[2020-07-16 06:52] LABS: BASOPHILS % (AUTO) 0.3 % (0.0-2.0); EOSINOPHILS # (AUTO) 0.1 K/uL (0.0-0.7); EOSINOPHILS % (AUTO) 1.1 % (0.0-7.0); HEMATOCRIT 37.8 % (36.7-47.1); HEMOGLOBIN 13.3 g/dL (12.5-16.3); LYMPHOCYTES # (AUTO) 1.8 K/uL (20.0-40.0); LYMPHOCYTES % (AUTO) 23.9 % (20.5-51.5); MEAN CORPUSCULAR HEMOGLOBIN 33.1 uug (23.8-33.4); MEAN CORPUSCULAR HGB CONC 35 g/dL (32.5-36.3); MEAN CORPUSCULAR VOLUME 93.8 fL (73.0-96.2); MONOCYTES # (AUTO) 0.7 K/uL (2.0-10.0); MONOCYTES % (AUTO) 9.4 % (0.0-11.0); NEUTROPHILS # (AUTO) 4.9 K/uL (1.8-8.9); NEUTROPHILS % (AUTO) 65.3 % (38.5-71.5); PLATELET COUNT (AUTO) 252 K/uL (152-348); RED BLOOD CELL COUNT(AUTO) 4.03 MIL/uL (4.06-5.63); WHITE BLOOD COUNT (AUTO) 7.5 K/uL (3.6-10.2)
[2020-07-16 07:08] LABS: BILIRUBIN,TOTAL 0.7 mg/dL (0.2-1.0); POTASSIUM 3.5 mmol/L (3.5-5.1); TOTAL PROTEIN, SERUM 7.1 g/dL (6.4-8.2)
[2020-07-16 07:11] LABS: THYROID STIMULATING HORMONE 2.702 mIU/mL (0.358-3.740)
--- NOTE | 2020-07-16 07:30 | NUR ---
received change of shift report on pt. pt awake alert and oriented x4, montenegrin and filipino speaking. pt on room air, no signs of distress noted, no reports of pain at this time. pt ambulatory with BRP. pt is NPO at this time. IV access on the right FA IVF infusing at 100cc. Bed in low and locked position, call light within reach, safety precautions in place, will continue to monitor.
[2020-07-16] MEDS: PANTOPRAZOLE SODIUM 40 MG VIAL IV SCH ×2 (08:36→08:48)
[2020-07-16] MEDS: LOSARTAN POTASSIUM 50 MG TABLET PO SCH ×2 (08:41→08:49)
[2020-07-16 12:22] VITALS: BP 146/91
[2020-07-16] MEDS: CLONIDINE HCL 0.1 MG TABLET PO PRN (15:02)
[2020-07-16] MEDS ORDERED: BUPIVACAINE/EPI PF 0.25% 30 ML VIAL ONE ×3 (15:15→17:18)
[2020-07-16] MEDS ORDERED: LIDOCAINE HCL 1% 20 ML VIAL ONE (15:18)
[2020-07-16 15:39] VITALS: BP 165/101
[2020-07-16] MEDS: IV LACTATED RINGERS SOLUTION 1,000 ML IV PRN ×2 (16:53→21:00)
--- NOTE | 2020-07-16 16:55 | NUR ---
pt down in surgery.
[2020-07-16] MEDS ORDERED: MIDAZOLAM HCL 10 MG/2 ML VIAL ONE (17:18)
[2020-07-16 17:27] LABS: *BILIRUBIN,URIN 1+ (NEGATIVE); *BLOOD, URINE NEGATIVE (NEGATIVE); *CLARITY,URINE CLEAR (CLEAR); *COLOR,URINE DARK YELLOW (YELLOW); *KETONES,URINE TRACE (NEGATIVE); LEUKOCYTE ESTERASE ,URINE NEGATIVE (NEGATIVE); NITRITE, URINE NEGATIVE (NEGATIVE); PH,URINE 5.5 (5.0-8.0); UGLUCOSE NEGATIVE (NEGATIVE)
--- NOTE | 2020-07-16 18:00 | NUR ---
pt currently in surgery, did not administer Zosyn IV medication, will administer when pt is back from surgery.
--- NOTE | 2020-07-16 18:46 | NUR ---
pt still in surgery, will endorse to oncoming nurse
[2020-07-16] MEDS ORDERED: CEFAZOLIN 1 G VIAL IM ONE (19:55)
[2020-07-16] MEDS ORDERED: VECURONIUM BROMIDE 10 MG VIAL IV ONE (19:55)
[2020-07-16] MEDS ORDERED: PROPOFOL 200 MG/20 ML BOTTLE IV ONE (19:55)
[2020-07-16] MEDS ORDERED: ONDANSETRON 4 MG/2 ML VIAL IV ONE (19:55)
[2020-07-16] MEDS ORDERED: ESMOLOL HCL 100 MG/10 ML VIAL IV ONE (19:55)
[2020-07-16] MEDS ORDERED: LIDOCAINE-MPF 2% 5 ML VIAL IJ ONE (19:55)
[2020-07-16] MEDS ORDERED: DEXAMETHASONE SOD PHOSPHATE 4 MG INJ IV ONE (19:55)
[2020-07-16] MEDS ORDERED: NEOSTIGMINE METHYLSULFATE 10 MG/10 ML VIAL IM ONE (19:55)
[2020-07-16] MEDS ORDERED: GLYCOPYRROLATE 0.2 MG/ML VIAL IJ ONE (19:55)
[2020-07-16] MEDS ORDERED: FENTANYL CITRATE 100 MCG/2 ML AMPUL ONE ×2 (19:58→20:09)
[2020-07-16] MEDS ORDERED: ONDANSETRON 4 MG/2 ML VIAL IV PRN (20:00)
[2020-07-16] MEDS ORDERED: ACETAMINOPHEN 325 MG TABLET PO PRN (20:00)
[2020-07-16] MEDS ORDERED: KETOROLAC TROMETHAMINE 30 MG INJ ONE (20:08)
[2020-07-16] MEDS ORDERED: hydrALAZINE HCL 20 MG/1 ML VIAL ONE (20:14)
[2020-07-16 21:03] VITALS: BP 168/99
[2020-07-16] MEDS: PIPERACILLIN SODIUM/TAZOBACTAM 3.37 G in IV DEXTROSE 5% 100 ML IV SCH (21:13)
--- NOTE | 2020-07-16 21:15 | NUR ---
RECEIVED PATIENT VIA BED FROM OR. PATIENT AWAKE UPON ARRIVAL TO THE FLOOR. A/O X4. C/O PAIN, 01/07. INCISION SITE X2 NOTED, C/D/I. HÉCTOR INTACT AND PATENT. O2 2L NC PRN SATING 99%. NO RESP. DISTRESS NOTED. IS AT BEDSIDE. BILATERAL DVT PUMP IN PLACE. H/L INTACT AND PATENT, NOTED TO RIGHT FA #20 GAUGE, IVF INFUSING WELL. CALL LIGHT IN REACH. ALL NEEDS ATTENDED. WILL CONTINUE TO MONITOR AND ASSESS.
[2020-07-16] MEDS: DOCUSATE SODIUM 100 MG CAPSULE PO SCH (21:28)
[2020-07-16 21:30] VITALS: BP 158/94
--- NOTE | 2020-07-16 21:45 | NUR ---
PATIENTS BP 168/99. C/O PAIN IN ABDOMEN. GIVEN MORPHINE 4MG IV PRN AND ZOFRAN 4MG IV PRN FOR NAUSEA. WILL CONTINUE TO MONITOR AND ASSESS. WILL CONTINUE TO MONITOR AND ASSESS.
--- NOTE | 2020-07-16 22:06 | NUR ---
BP SLOWLY TRENDING DOWN, PAIN DIMINISHED. WILL CONTINUE TO MONITOR AND ASSESS.
[2020-07-16 22:16] VITALS: BP 160/98
[2020-07-17] MEDS: CLONIDINE HCL 0.1 MG TABLET PO PRN ×4 (00:37→20:15)
[2020-07-17] MEDS: MORPHINE SULFATE 2 MG/1 ML DISP.SYRIN IV PRN ×4 (00:41→12:28)
[2020-07-17] MEDS: PIPERACILLIN SODIUM/TAZOBACTAM 3.37 G in IV DEXTROSE 5% 100 ML IV SCH ×3 (04:23→18:12)
[2020-07-17] MEDS: IV LACTATED RINGERS SOLUTION 1,000 ML IV PRN ×3 (05:01→16:56)
--- NOTE | 2020-07-17 05:32 | NUR ---
PATIENT AWAKE IN BED. BP 170/90. CALLED OUT TO BERNIE HOUSER. RECEIVED NEW ORDERS.
[2020-07-17 05:36] VITALS: BP 170/90
[2020-07-17] MEDS ORDERED: LOSA1TAB3 PO (06:05)
--- NOTE | 2020-07-17 06:10 | NUR ---
PATIENT GIVEN CLONIDINE 0.1MG PO PRN FOR ELEVATED BP. PATIENT IS AFEBRILE. C/O MILD PAIN, WAS PREVIOUSLY MEDICATED. IVF INFUSING WELL. NO RESP. DISTRESS NOTED. CALL LIGHT IN REACH. ALL NEEDS ATTENDED. WILL CONTINUE TO MONITOR AND ASSESS.
[2020-07-17 07:09] LABS: BASOPHILS % (AUTO) 0.1 % (0.0-2.0); HEMATOCRIT 35.6 % (36.7-47.1); HEMOGLOBIN 12.6 g/dL (12.5-16.3); LYMPHOCYTES # (AUTO) 0.9 K/uL (20.0-40.0); LYMPHOCYTES % (AUTO) 10.8 % (20.5-51.5); MEAN CORPUSCULAR HEMOGLOBIN 33.1 uug (23.8-33.4); MEAN CORPUSCULAR HGB CONC 35 g/dL (32.5-36.3); MEAN CORPUSCULAR VOLUME 93.9 fL (73.0-96.2); MONOCYTES # (AUTO) 0.6 K/uL (2.0-10.0); MONOCYTES % (AUTO) 6.4 % (0.0-11.0); NEUTROPHILS # (AUTO) 7.2 K/uL (1.8-8.9); NEUTROPHILS % (AUTO) 82.7 % (38.5-71.5); PLATELET COUNT (AUTO) 311 K/uL (152-348); RED BLOOD CELL COUNT(AUTO) 3.79 MIL/uL (4.06-5.63); WHITE BLOOD COUNT (AUTO) 8.8 K/uL (3.6-10.2)
[2020-07-17 07:21] LABS: BILIRUBIN,TOTAL 0.8 mg/dL (0.2-1.0); CREATININE 1.1 mg/dL (0.6-1.3); POTASSIUM 4.2 mmol/L (3.5-5.1); TOTAL PROTEIN, SERUM 7.1 g/dL (6.4-8.2)
--- NOTE | 2020-07-17 07:30 | NUR ---
receive report on pt awake alert and orientedx4, speaks Cymraes/Burmese. pt has surgical incision on the top and bottom of the abdomen, HÉCTOR drain on the right side. pt has O2 2L via NC as needed. pt ambulatory has BRP, on clear liquid diet. Urinal at bedside. IV access on the right FA 20g running LR at 100cc. bed in low and locked position, call light within reach, safety and fall precautions in place, will continue with plan of care.
--- NOTE | 2020-07-17 08:45 | NUR ---
pt refused morning medication, did not want blood pressure medications because clonodine 0.1mg was given just 2 hours prior. Pt BP was 162/93, pulse 66. pt saturating at 91% on room air, pt has 2L O2 as needed, refused to put on NC when asked. will continue to monitor.
[2020-07-17] MEDS: PANTOPRAZOLE SODIUM 40 MG VIAL IV SCH (08:51)
[2020-07-17] MEDS: LOSARTAN POTASSIUM 50 MG TABLET PO SCH ×2 (08:51→15:48)
[2020-07-17 09:55] VITALS: BP 162/93
[2020-07-17 12:00] VITALS: BP 150/86
[2020-07-17 15:13] VITALS: BP 167/95
[2020-07-17] MEDS: MORPHINE SULFATE 4 MG/1 ML DISP.SYRIN IV PRN ×2 (16:48→20:15)
--- NOTE | 2020-07-17 19:08 | NUR ---
pt awake, alert, and oriented x4, on 2L O2 as needed, no signs of distress noted, pt reports pain 6/10 refuses [place] PO at this time, he would rather wait for Morphine IV instead. pt is ambulatory, steady gait BRP, urinal at bedside. pt has surgical wound on top of abdomen and lower abdomen with craig drain on the right side, draining sanguineous fluid. Pt on clear liquid diet, IV on the right FA 20g IVF infusing lactated ringers at 100cc. bed in low and locked position, call light within reach, all medications given as ordered, will endorse to oncoming nurse.
--- NOTE | 2020-07-17 20:00 | NUR ---
Received patient in bed AAOx4. No s/s of acute distress noted at this time. Pt on RA denies SOB, O2 @ 92%, refusing NC. C/o abdominal pain, will administer medication per order. BP elevated 230/121, will administer PRN Clonidine. Patient denies AMIN, CP, and dizziness. Right abdomen HÉCTOR drain intact and draining sanguineous fluid. Safety measures in place, bed locked and in low position.
[2020-07-17] MEDS: DOCUSATE SODIUM 100 MG CAPSULE PO SCH (20:14)
[2020-07-17 21:00] VITALS: BP 234/117
[2020-07-17] MEDS: HYDROCODONE/APAP 5-325MG TABLET PO PRN ×2 (21:40→23:16)
[2020-07-17] MEDS: ZOLPIDEM 5 MG TABLET PO PRN (21:47)
--- NOTE | 2020-07-17 23:48 | NUR ---
Patient BP remains elevated 184/112 after PRN Clonidine and pain management administered. Notified on-call physician. New orders for Hydralazine 50mg Q4hr PRN SBP>165. Will administer and continue to monitor patient blood pressure.
[2020-07-18] VITALS (7 sets, daily range): BP systolic 140–174; BP diastolic 72–103
[2020-07-18] MEDS: hydrALAZINE HCL 50 MG TABLET PO PRN ×2 (00:09→20:20)
[2020-07-18] MEDS: PIPERACILLIN SODIUM/TAZOBACTAM 3.37 G in IV DEXTROSE 5% 100 ML IV SCH ×3 (01:18→17:28)
[2020-07-18] MEDS: MORPHINE SULFATE 4 MG/1 ML DISP.SYRIN IV PRN ×5 (01:36→19:53)
[2020-07-18] MEDS: IV LACTATED RINGERS SOLUTION 1,000 ML IV PRN (05:35)
[2020-07-18] MEDS: CLONIDINE HCL 0.1 MG TABLET PO PRN ×2 (05:44→16:07)
--- NOTE | 2020-07-18 06:41 | NUR ---
Patient is resting in bed. No s/s of acute distress noted at this time. Pt on RA denies SOB, O2 @ 93%. BP elevated 176/92, PRN catapres administered. Patient denies AMIN, dizziness, and chest pain. Right FA IV patent and intact infusing ordered fluids. Right abdomen HÉCTOR drain, patent. Safety measures in place. Will endorse to oncoming shift.
--- NOTE | 2020-07-18 07:30 | NUR ---
Received patient awake in bed, talking on the phone. No resp distress. Beed is low and locked. Patient is comfortable. Will continue to monitor.
[2020-07-18] MEDS: HYDROCODONE/APAP 5-325MG TABLET PO PRN ×3 (08:17→21:08)
[2020-07-18] MEDS: LOSARTAN POTASSIUM 50 MG TABLET PO SCH (08:18)
[2020-07-18] MEDS: PANTOPRAZOLE SODIUM 40 MG TABLET.DR PO SCH (08:20)
--- NOTE | 2020-07-18 16:15 | NUR ---
BP around 4pm is 166/94. Administered Catapres as ordered. At 1715 Bp noted 140/72.
--- NOTE | 2020-07-18 18:54 | NUR ---
Patient is alert and oriented. Denies sob. Due meds given and tolerated. On IV Zosyn tolerated. No adverse reaction noted. RFA IV intact and patent. Patient is comfortable. Bed kept low and locked at all times. Call light within reach. Needs attended. Will continue to monitor.
[2020-07-18] MEDS: DOCUSATE SODIUM 100 MG CAPSULE PO SCH (20:45)
[2020-07-19] MEDS: ZOLPIDEM 5 MG TABLET PO PRN (01:32)
[2020-07-19] MEDS: PIPERACILLIN SODIUM/TAZOBACTAM 3.37 G in IV DEXTROSE 5% 100 ML IV SCH ×3 (01:32→17:58)
[2020-07-19] MEDS: hydrALAZINE HCL 50 MG TABLET PO PRN (04:55)
[2020-07-19 04:56] VITALS: BP 164/112
[2020-07-19] MEDS: PANTOPRAZOLE SODIUM 40 MG TABLET.DR PO SCH (06:34)
--- NOTE | 2020-07-19 07:40 | NUR ---
Pt in Bed resting. A&O4 on room air saturating at 98%. No acute distress noteded. Pt is able to make needs known. Is requesting pain mediation due to surgery. RFA 20g patent and flushing well. Will give medications as scheduled. will continue to monitor.
--- NOTE | 2020-07-19 08:15 | NUR ---
received Pt in bed resting. On room air saturating at 95%. Elevated BP. complaining of pain 7/10 burning pain, Patient is NPO waiting for procedure. RFA 20g is patent and flushes well. Endorsed to surgery nurses. Pickup to sx @ [phone] Addendum: 07/19/20 at 2098 by JUNAID DIEGO RN RN time 1999
[2020-07-19] MEDS: MORPHINE SULFATE 4 MG/1 ML DISP.SYRIN IV PRN ×3 (08:44→18:48)
[2020-07-19] MEDS: LOSARTAN POTASSIUM 50 MG TABLET PO SCH (08:44)
--- NOTE | 2020-07-19 11:01 | NUR ---
Dr. Finley ordered a AL HIDA GB VAS FLOW. Will get consent for procedure.
[2020-07-19] MEDS: CLONIDINE HCL 0.1 MG TABLET PO PRN (11:56)
[2020-07-19 12:00] VITALS: BP 174/120
[2020-07-19 12:38] LABS: EOSINOPHILS # (AUTO) 0.1 K/uL (0.0-0.7); HEMOGLOBIN 13.6 g/dL (12.5-16.3); WHITE BLOOD COUNT (AUTO) 5.8 K/uL (3.6-10.2)
[2020-07-19 12:45] LABS: BILIRUBIN,TOTAL 0.9 mg/dL (0.2-1.0); MAGNESIUM 1.7 mg/dL (1.8-2.4); PHOSPHOROUS 3.4 mg/dL (2.5-4.9); POTASSIUM 3.9 mmol/L (3.5-5.1); TOTAL PROTEIN, SERUM 7.5 g/dL (6.4-8.2)
[2020-07-19 12:55] LABS: BASOPHILS % (AUTO) 0.7 % (0.0-2.0); EOSINOPHILS % (AUTO) 1.8 % (0.0-7.0); HEMATOCRIT 39.7 % (36.7-47.1); LYMPHOCYTES # (AUTO) 1.6 K/uL (20.0-40.0); LYMPHOCYTES % (AUTO) 28.4 % (20.5-51.5); MEAN CORPUSCULAR HEMOGLOBIN 32.2 uug (23.8-33.4); MEAN CORPUSCULAR HGB CONC 34 g/dL (32.5-36.3); MEAN CORPUSCULAR VOLUME 93.9 fL (73.0-96.2); MONOCYTES # (AUTO) 0.6 K/uL (2.0-10.0); MONOCYTES % (AUTO) 10.7 % (0.0-11.0); NEUTROPHILS # (AUTO) 3.4 K/uL (1.8-8.9); NEUTROPHILS % (AUTO) 58.4 % (38.5-71.5); PLATELET COUNT (AUTO) 390 K/uL (152-348); RED BLOOD CELL COUNT(AUTO) 4.23 MIL/uL (4.06-5.63)
[2020-07-19] MEDS ORDERED: SEVOFLURANE 250 ML BOTTLE IH ONE (14:59)
[2020-07-19] MEDS ORDERED: PROPOFOL 200 MG/20 ML BOTTLE IV ONE (14:59)
[2020-07-19] MEDS ORDERED: GLYCOPYRROLATE 0.2 MG/ML VIAL MC ONE (14:59)
[2020-07-19] MEDS ORDERED: NEOSTIGMINE METHYLSULFATE 10 MG/10 ML VIAL IV ONE (14:59)
[2020-07-19] MEDS ORDERED: CEFAZOLIN 1 G VIAL MC ONE (14:59)
[2020-07-19 16:00] VITALS: BP 165/97
--- NOTE | 2020-07-19 16:05 | NUR ---
Dr Tori Mclean called and [facility] called Denny at [facility] and left message
--- NOTE | 2020-07-19 16:30 | NUR ---
[facility]
--- NOTE | 2020-07-19 19:47 | NUR ---
Pt in bed resting. On room air saturating at 98%. No distress noted, pt was complaining of pain, PRN pain medication was given as ordered. Patient is NPO waiting for procedure. RFA 20g is patent and flushes well. Will endorse to oncoming RN. All needs met, all medications given as ordered.
[2020-07-19] MEDS ORDERED: FENTANYL CITRATE 250 MCG/5 ML AMPUL ONE (19:48)
[2020-07-19] MEDS ORDERED: MIDAZOLAM HCL 2 MG/2 ML VIAL ONE (19:48)
[2020-07-19] MEDS ORDERED: ROCURONIUM BROMIDE 50 MG/5 ML VIAL ONE (19:49)
[2020-07-19] MEDS ORDERED: HYDROMORPHONE 2 MG/1 ML DISP.SYRIN ONE (19:49)
--- NOTE | 2020-07-19 20:00 | NUR ---
received Pt in bed resting. On room air saturating at 95%. Elevated BP. complaining of pain 7/10 burning pain, Patient is NPO waiting for procedure. RFA 20g is patent and flushes well. Endorsed to surgery nurses. Pickup to sjina @ [phone]
[2020-07-19 20:12] VITALS: BP 185/121
[2020-07-19] MEDS: DOCUSATE SODIUM 100 MG CAPSULE PO SCH (20:16)
[2020-07-19] MEDS ORDERED: BUPIVACAINE/EPI PF 0.5% 10 ML VIAL ONE (20:47)
[2020-07-19] MEDS ORDERED: LIDOCAINE HCL 2% 20 ML VIAL ONE (20:47)
--- NOTE | 2020-07-19 21:00 | NUR ---
pt currently in surgery, did not administer Colace
[2020-07-19] MEDS ORDERED: IOPAMIDOL 15 ML VIAL IT ONE (21:05)
[2020-07-19] MEDS ORDERED: METRONIDAZOLE 500 MG/NS 100ML 100 ML IV ONE (21:15)
[2020-07-19] MEDS ORDERED: IOHEXOL 300MG/ML 50 ML VIAL ONE (21:28)
[2020-07-19] MEDS ORDERED: LABETALOL HCL 100 MG/20 ML VIAL ONE (22:17)
--- NOTE | 2020-07-19 23:18 | NUR ---
Pt transferred back from surgery and back in room 322
--- NOTE | 2020-07-19 23:25 | NUR ---
Pt received via bed from OR. Pt awake intermittently, resting in bed. AxOx4 denies any pain or discomfort at the moment. Incision site x3 noted. HÉCTOR intact, patent and draining. VSS BP 14/88, HR 60, RR, 18, on 2L O2 saturating @94%. Bilateral DVT pump in place. right FA 20G intact, call light with reach. Will continue to monitor.
[2020-07-19 23:26] VITALS: BP 145/88
[2020-07-20] MEDS: IV LACTATED RINGERS SOLUTION 1,000 ML IV PRN ×2 (00:53→12:52)
[2020-07-20] MEDS: MORPHINE SULFATE 4 MG/1 ML DISP.SYRIN IV PRN ×8 (00:53→20:55)
--- NOTE | 2020-07-20 01:15 | NUR ---
C/O abdominal pain, 10/07, administered morphine PRN.
[2020-07-20] MEDS: PIPERACILLIN SODIUM/TAZOBACTAM 3.37 G in IV DEXTROSE 5% 100 ML IV SCH ×3 (01:59→17:18)
--- NOTE | 2020-07-20 02:54 | NUR ---
pt is c/o of abdominal pain 11/06. Notified Dr. Christiano Lam, new order to change morphine 4mg Q4H to morphine 4mg Q2H.
[2020-07-20 04:15] VITALS: BP 157/103
--- NOTE | 2020-07-20 06:41 | NUR ---
0215 jpeg intact and patent, emptied out 40 cc of serous drainage 0330Administered morphine per pt request states pain is 7/10. Assisted pt out of bed to walk to the bathroom, tolerated well. Vitals stable. No acute distress noted. IV antibiotics infused, tolerated well, no adverse reactions noted. 0640 Pt stated having gas. c/o 9/10 pain administered morphine PRN. jpeg intact and patent, emptied out 40cc of tea colored drainage. Pt resting comfortably in bed. All needs attended to. Safety measures in place. Will continue plan of care. Will endorse report to oncoming nurse
[2020-07-20] MEDS ORDERED: hydrALAZINE HCL 50 MG TABLET PO PRN (07:30)
[2020-07-20] MEDS: PANTOPRAZOLE SODIUM 40 MG TABLET.DR PO SCH (08:33)
[2020-07-20] MEDS: LOSARTAN POTASSIUM 50 MG TABLET PO SCH (08:34)
[2020-07-20] MEDS: CLONIDINE HCL 0.1 MG TABLET PO PRN (08:34)
[2020-07-20 11:40] VITALS: BP 186/117
[2020-07-20] MEDS: AMLODIPINE 5 MG TABLET PO SCH (12:24)
[2020-07-20 13:30] VITALS: BP 154/98
--- NOTE | 2020-07-20 13:55 | NUR ---
SURGICAL PLANT SAFETY ENGINEER REMOVED 50 CC OF SEROSANGUINEOUS DRAINAGE FROM THE HÉCTOR DRAIN. WILL CONTINUE TO MONITOR. Addendum: 07/20/20 at 1855 by POOJA LOWE RN PLANT SAFETY ENGINEER ALSO SPOKE WITH PATIENT AND PATIENT STATES THAT HE REMOVED THE FLUID FROM THE HÉCTOR DRAIN DURING JOB PUTTER UP AND TICKET PREPARER. INSTRUCTED NOT TO REMOVE FLUID BY HIMSELF AND TO CALL RN. VERBALIZED UNDERSTANDING.
[2020-07-20 15:13] VITALS: BP 154/86
--- NOTE | 2020-07-20 16:00 | NUR ---
LOW GRADE TEMPERATURE 99.3. OFFERED PATIENT TYLENOL - PATIENT REFUSED AND STATES THAT HE "FEELS OKAY. I DON'T FEEL LIKE I HAVE A FEVER." WILL CONTINUE TO MONITOR.
--- NOTE | 2020-07-20 16:42 | NUR ---
COLLEGE PROFESSOR REPORTED ELEVATED BP AT 1230. ASSESSED BP - 194/102. GIVEN PRN HYDRALAZINE AND SCHEDULED AMLODIPINE. REASSESSED AT 1330 - BP 154/98. WILL CONTINUE TO MONITOR.
[2020-07-20 17:16] LABS: CREATININE 1.1 mg/dL (0.6-1.3); POTASSIUM 3.5 mmol/L (3.5-5.1)
[2020-07-20 17:19] LABS: BASOPHILS # (AUTO) 0.1 K/uL (0.0-8.0); BASOPHILS % (AUTO) 0.6 % (0.0-2.0); EOSINOPHILS # (AUTO) 0.1 K/uL (0.0-0.7); EOSINOPHILS % (AUTO) 0.5 % (0.0-7.0); HEMATOCRIT 40.3 % (36.7-47.1); HEMOGLOBIN 13.9 g/dL (12.5-16.3); LYMPHOCYTES # (AUTO) 1.9 K/uL (20.0-40.0); MEAN CORPUSCULAR HEMOGLOBIN 32.1 uug (23.8-33.4); MEAN CORPUSCULAR HGB CONC 35 g/dL (32.5-36.3); MEAN CORPUSCULAR VOLUME 93.1 fL (73.0-96.2); MONOCYTES # (AUTO) 1.2 K/uL (2.0-10.0); MONOCYTES % (AUTO) 9.8 % (0.0-11.0); NEUTROPHILS # (AUTO) 9.5 K/uL (1.8-8.9); NEUTROPHILS % (AUTO) 74.1 % (38.5-71.5); PLATELET COUNT (AUTO) 392 K/uL (152-348); RED BLOOD CELL COUNT(AUTO) 4.33 MIL/uL (4.06-5.63); WHITE BLOOD COUNT (AUTO) 12.8 K/uL (3.6-10.2)
[2020-07-20 17:21] LABS: BILIRUBIN,TOTAL 1.3 mg/dL (0.2-1.0); TOTAL PROTEIN, SERUM 7.4 g/dL (6.4-8.2)
--- NOTE | 2020-07-20 18:51 | NUR ---
PATIENT NOTIFIED RN OF SURGICAL DRAINAGE ON DRESSING. DRESSING MARKED TO CHECK IF CURRENTLY LEAKING. PER CLOTH DESIGNER, HÉCTOR DRAIN WAS NOT PROPERLY COMPRESSED TO PROMOTE SUCTION. INSTRUCTED PATIENT TO NOT TOUCH HÉCTOR DRAIN. VERBALIZED UNDERSTANDING. WILL NOTIFY MD. WILL ENDORSE TO ONCOMING SHIFT.
[2020-07-20 20:12] VITALS: BP_SYST 120; BP_SYST 161; BP_DIAS 101; BP_DIAS 82
[2020-07-20] MEDS: DOCUSATE SODIUM 100 MG CAPSULE PO SCH (20:55)
[2020-07-21] MEDS: PIPERACILLIN SODIUM/TAZOBACTAM 3.37 G in IV DEXTROSE 5% 100 ML IV SCH ×2 (02:19→10:45)
[2020-07-21] MEDS: MORPHINE SULFATE 4 MG/1 ML DISP.SYRIN IV PRN ×4 (02:43→13:51)
[2020-07-21 04:15] VITALS: BP 151/93
[2020-07-21] MEDS: PANTOPRAZOLE SODIUM 40 MG TABLET.DR PO SCH (06:22)
[2020-07-21 07:02] LABS: BASOPHILS # (AUTO) 0.1 K/uL (0.0-8.0); BASOPHILS % (AUTO) 0.8 % (0.0-2.0); EOSINOPHILS # (AUTO) 0.1 K/uL (0.0-0.7); EOSINOPHILS % (AUTO) 1.3 % (0.0-7.0); HEMATOCRIT 37.4 % (36.7-47.1); HEMOGLOBIN 12.7 g/dL (12.5-16.3); LYMPHOCYTES % (AUTO) 26.6 % (20.5-51.5); MEAN CORPUSCULAR HGB CONC 34 g/dL (32.5-36.3); MEAN CORPUSCULAR VOLUME 94.2 fL (73.0-96.2); MONOCYTES # (AUTO) 0.8 K/uL (2.0-10.0); MONOCYTES % (AUTO) 11.1 % (0.0-11.0); NEUTROPHILS # (AUTO) 4.5 K/uL (1.8-8.9); NEUTROPHILS % (AUTO) 60.2 % (38.5-71.5); PLATELET COUNT (AUTO) 385 K/uL (152-348); RED BLOOD CELL COUNT(AUTO) 3.98 MIL/uL (4.06-5.63); WHITE BLOOD COUNT (AUTO) 7.5 K/uL (3.6-10.2)
[2020-07-21 07:33] LABS: BILIRUBIN,DIRECT 0.5 mg/dL (0.0-0.2); CREATININE 1.1 mg/dL (0.6-1.3); MAGNESIUM 1.7 mg/dL (1.8-2.4); PHOSPHOROUS 2.9 mg/dL (2.5-4.9); POTASSIUM 3.5 mmol/L (3.5-5.1); TOTAL PROTEIN, SERUM 7.1 g/dL (6.4-8.2)
--- NOTE | 2020-07-21 07:36 | NUR ---
PATIENT ALERT ORIENTED, NO SOB NO CHEST PAIN. PATIENT ON PAIN MANAGEMENT DUE S/P LAP COLI, HÉCTOR DRAINING WITH SEROSANGENEOUS IN SMALL AMOUNT, CONT TO MONITOR. PATIENT AMBULATE TO TOILET, PASSING GAS.
[2020-07-21] MEDS: AMLODIPINE 5 MG TABLET PO SCH (09:04)
[2020-07-21] MEDS: LOSARTAN POTASSIUM 50 MG TABLET PO SCH (09:05)
[2020-07-21] MEDS ORDERED: MAGNESIUM SULFATE/D5W 100 ML IV SCH (09:15)
[2020-07-21] MEDS: IV LACTATED RINGERS SOLUTION 1,000 ML IV PRN (09:40)
[2020-07-21 11:48] VITALS: BP 162/95
[2020-07-21] MEDS ORDERED: CIPR-262 PO (12:45)
[2020-07-21] MEDS ORDERED: AMLO-212 PO (12:45)
[2020-07-21] MEDS ORDERED: METR500T PO (12:45)
--- NOTE | 2020-07-21 14:58 | NUR ---
PATIENT SCHEDULED TO BE DISCHARGED. VSS. DISCUSSED DISCHARGE PLAN WITH PATIENT AND TO FOLLOW UP WITH DR IGLESIAS'S OFFICE. VERBALIZED UNDERSTANDING. BELONGINGS RETURNED TO PATIENT AND INVENTORY LIST SIGNED. DRESSING OF SURGICAL INCISIONS CHANGED. PHOTOS TAKEN AND IN CHART. PRESCRIPTION GIVEN TO PATIENT. IV REMOVED, NO S/S OF BLEEDING. ID BAND REMOVED. ESCORTED DOWN TO LOBBY BY MATCHBOOK ASSEMBLER. DENIES PAIN AND SOB. NO S/S OF DISTRESS NOTED AT THIS TIME. Addendum: 07/21/20 at 1502 by POOJA LOWE RN HÉCTOR DRAIN EMPTIED: 30 CC REMOVED DURING DAY SHIFT PRIOR TO DISCHARGE.
== END 2020-07-21 15:00 | disposition home or self-care (01) | DRG 409 ==
LOC: ER 18:35 → MEDSURG3 22:01
PROVIDERS: ADMIT Nurse Practitioner Acute Care; ATTEND Nurse Practitioner Acute Care
PROC: 0FT44ZZ Resection of Gallbladder, Percutaneous Endoscopic Approach (ICD-10-PCS; principal; 2020-07-16)
PROC: BF532Z0 Other Imaging of Gallbladder and Bile Ducts using Fluorescing Agent, Intraoperative (ICD-10-PCS; 2020-07-16)
PROC: 0FP Hepatobiliary System and Pancreas, Removal (ICD-10-PCS; 2020-07-19)
PROC: 0F9 Hepatobiliary System and Pancreas, Drainage (ICD-10-PCS; 2020-07-19)
DX: K80.00 Calculus of gallbladder with acute cholecystitis without obstruction (principal); K82.1 Hydrops of gallbladder; K91.89 Other postprocedural complications and disorders of digestive system; K82.A2 Perforation of gallbladder in cholecystitis; I10 Essential (primary) hypertension; E88.09 Other disorders of plasma-protein metabolism, not elsewhere classified; K43.9 Ventral hernia without obstruction or gangrene; Z87.891 Personal history of nicotine dependence; Y83.8 Other surgical procedures as the cause of abnormal reaction of the patient, or of later complication, without mention of misadventure at the time of the procedure; Y92.230 Patient room in hospital as the place of occurrence of the external cause; Z20.822 Contact with and (suspected) exposure to COVID-19
CPT/HCPCS: 36415; 74018; 76700; 78445; 83605; 83690; 83735; 84100; 84443; 85025; 85730; 86850; 86900; 86901; A4663; A9537; C1758; C1876; C9113; G0378; J0360; J0690; J0696; J1100; J1170; J1885; J2250; J2270; J2405; J2543; J3010; J3475; J3490; J7030; J7040; J7050; J7060; J7120; L8699; Q9967

== ENCOUNTER 2020-08-05 23:47 | Inpatient (IN) | payer MEDICAID ==
[~2020-08-05] VITALS: Ht 172.7 cm; Wt 81.6 kg
[~2020-08-05 23:47] MED LIST changes: +AMLO-212 PO; +CIPR-262 PO; +METR500T PO
--- NOTE | 2020-08-06 00:40 | NUR ---
MD Bro in room to do MSE.
[2020-08-06] MEDS ORDERED: HYDROMORPHONE 1 MG/1 ML DISP.SYRIN IV ONE ×2 (00:45→04:00)
[2020-08-06] MEDS ORDERED: IV NORMAL SALINE 1000 ML BAG IV ONE (00:45)
[2020-08-06] MEDS ORDERED: ONDANSETRON 4 MG/2 ML VIAL IV ONE (00:45)
[2020-08-06 01:29] LABS: POTASSIUM 3.9 mmol/L (3.5-5.1)
[2020-08-06 01:33] LABS: BILIRUBIN,DIRECT 0.4 mg/dL (0.0-0.2); TOTAL PROTEIN, SERUM 7.9 g/dL (6.4-8.2)
[2020-08-06 01:36] LABS: BASOPHILS % (AUTO) 0.1 % (0.0-2.0); EOSINOPHILS % (AUTO) 0.2 % (0.0-7.0); HEMATOCRIT 42.6 % (36.7-47.1); HEMOGLOBIN 14.6 g/dL (12.5-16.3); LYMPHOCYTES # (AUTO) 1.9 K/uL (20.0-40.0); LYMPHOCYTES % (AUTO) 14.6 % (20.5-51.5); MEAN CORPUSCULAR HEMOGLOBIN 32.2 uug (23.8-33.4); MEAN CORPUSCULAR HGB CONC 34 g/dL (32.5-36.3); MEAN CORPUSCULAR VOLUME 94.4 fL (73.0-96.2); MONOCYTES # (AUTO) 1.2 K/uL (2.0-10.0); MONOCYTES % (AUTO) 9.4 % (0.0-11.0); NEUTROPHILS # (AUTO) 9.7 K/uL (1.8-8.9); NEUTROPHILS % (AUTO) 75.7 % (38.5-71.5); PLATELET COUNT (AUTO) 377 K/uL (152-348); RED BLOOD CELL COUNT(AUTO) 4.52 MIL/uL (4.06-5.63); WHITE BLOOD COUNT (AUTO) 12.9 K/uL (3.6-10.2)
[2020-08-06] MEDS ORDERED: IOHEXOL 300MG/ML 100 ML INFUS..BTL ONE (01:45)
[2020-08-06] MEDS ORDERED: SWABABLE VALVE TRANSFER SET EA MC ONE (01:45)
[2020-08-06] MEDS ORDERED: IV NORMAL SALINE 250 ML IV ONE (01:45)
--- NOTE | 2020-08-06 01:47 | NUR ---
computer forensics technician here to take patient for CT scan of abdomen/pelvis with contrast. Consent signed.
[2020-08-06 03:12] LABS: *BILIRUBIN,URIN NEGATIVE (NEGATIVE); *BLOOD, URINE NEGATIVE (NEGATIVE); *CLARITY,URINE CLEAR (CLEAR); *COLOR,URINE YELLOW (YELLOW); *KETONES,URINE NEGATIVE (NEGATIVE); *UROBILINOGEN,URINE 0.2 E.U./dl (NORMAL); LEUKOCYTE ESTERASE ,URINE NEGATIVE (NEGATIVE); NITRITE, URINE NEGATIVE (NEGATIVE); PH,URINE 5.5 (5.0-8.0); UGLUCOSE NEGATIVE (NEGATIVE)
--- NOTE | 2020-08-06 03:13 | NUR ---
MD Mclean called per MD Bro orders in regard's to decisions regarding admission.
[2020-08-06] MEDS ORDERED: IV NS 1000 ML 1,000 ML IV ONE (03:30)
[2020-08-06] MEDS ORDERED: PIPERACILLIN SODIUM/TAZOBACTAM 3.375 G in IV DEXTROSE 5% 50 ML IV ONE (03:30)
--- NOTE | 2020-08-06 03:48 | NUR ---
Called for room on 3rd floor. Patient has been assigned room 316.
[2020-08-06] MEDS ORDERED: PIPERACILLIN/TAZOBACTAM/D5W 50 ML IV ONE (03:52)
[2020-08-06] MEDS ORDERED: HYDROCODONE/APAP 5-325MG TABLET PO PRN (04:00)
[2020-08-06] MEDS ORDERED: ONDANSETRON 4 MG/2 ML VIAL IV PRN (04:00)
[2020-08-06] MEDS ORDERED: CLONIDINE HCL 0.1 MG TABLET PO PRN (04:00)
[2020-08-06] MEDS ORDERED: Z GUARD REMEDY PASTE 57 GM TUBE TOP PRN (04:00)
[2020-08-06] MEDS ORDERED: MAGNESIUM HYDROXIDE 30 ML LIQUID UDC PO PRN (04:00)
[2020-08-06] MEDS ORDERED: ACETAMINOPHEN 325 MG TABLET PO PRN (04:00)
--- NOTE | 2020-08-06 04:00 | NUR ---
Patient verbalizes returning of pain. MD Bro aware.
--- NOTE | 2020-08-06 04:20 | NUR ---
tap and die maker technician Sonja called, notified patient is COVID negative.
[2020-08-06] MEDS ORDERED: HYDROMORPHONE 1 MG/1 ML DISP.SYRIN ONE (04:39)
--- NOTE | 2020-08-06 04:53 | NUR ---
MD Mclean answering service called to check on status of paging him. Call mechanical service representative states they will page him again.
--- NOTE | 2020-08-06 04:54 | NUR ---
MD Mclean called back, call transferred to MD Bro.
--- NOTE | 2020-08-06 04:57 | NUR ---
Report given to PRISCILLA Alfaro.
--- NOTE | 2020-08-06 05:10 | NUR ---
Pt. admitted to med-surg 316, under care of Dr. Graves Belongs List completed
[2020-08-06 05:30] VITALS: BP 157/94
[2020-08-06] MEDS ORDERED: PIPERACILLIN SODIUM/TAZOBACTAM 3.375 G in IV DEXTROSE 5% 50 ML IV SCH (06:00)
--- NOTE | 2020-08-06 06:30 | NUR ---
Received patient from ED admitted for Biliary leak under Dr. Graves. Patient is AAOx4 English and Citizen Of [place] speaking. No s/s of acute distress noted at this time. Pt on RA denies SOB. Left AC patent and intact. Patient c/o abdominal pain 12/07. Pt has norco available, but chooses not to take, states "not effective makes my stomach hurt, notified Dr. Graves waiting for call back. .Pt ambulatory with BRP. pt is NPO at this time. Will continue to monitor for safety
[2020-08-06] MEDS: LOSARTAN POTASSIUM 50 MG TABLET PO SCH (08:00)
[2020-08-06] MEDS: AMLODIPINE 5 MG TABLET PO SCH (08:00)
[2020-08-06] MEDS: MORPHINE SULFATE 4 MG/1 ML DISP.SYRIN IV PRN ×2 (10:55→21:24)
[2020-08-06 12:00] VITALS: BP 145/91
[2020-08-06 16:07] VITALS: BP 145/89
[2020-08-06] MEDS ORDERED: ZOLPIDEM 5 MG TABLET PO PRN (20:00)
[2020-08-06 20:03] VITALS: BP 140/89
[2020-08-06] MEDS: PIPERACILLIN SODIUM/TAZOBACTAM 3.37 G in IV DEXTROSE 5% 100 ML IV SCH (21:23)
[2020-08-07] MEDS: MORPHINE SULFATE 4 MG/1 ML DISP.SYRIN IV PRN ×4 (02:28→14:17)
[2020-08-07 04:58] VITALS: BP 137/88
[2020-08-07] MEDS: PIPERACILLIN SODIUM/TAZOBACTAM 3.37 G in IV DEXTROSE 5% 100 ML IV SCH ×2 (05:38→13:03)
[2020-08-07 07:03] LABS: BASOPHILS % (AUTO) 0.2 % (0.0-2.0); EOSINOPHILS # (AUTO) 0.1 K/uL (0.0-0.7); EOSINOPHILS % (AUTO) 0.8 % (0.0-7.0); HEMOGLOBIN 13.6 g/dL (12.5-16.3); LYMPHOCYTES # (AUTO) 1.4 K/uL (20.0-40.0); LYMPHOCYTES % (AUTO) 12.8 % (20.5-51.5); MEAN CORPUSCULAR HEMOGLOBIN 32.1 uug (23.8-33.4); MEAN CORPUSCULAR HGB CONC 34 g/dL (32.5-36.3); MEAN CORPUSCULAR VOLUME 94.4 fL (73.0-96.2); MONOCYTES # (AUTO) 1.2 K/uL (2.0-10.0); MONOCYTES % (AUTO) 10.6 % (0.0-11.0); NEUTROPHILS # (AUTO) 8.3 K/uL (1.8-8.9); NEUTROPHILS % (AUTO) 75.6 % (38.5-71.5); PLATELET COUNT (AUTO) 322 K/uL (152-348); RED BLOOD CELL COUNT(AUTO) 4.24 MIL/uL (4.06-5.63); WHITE BLOOD COUNT (AUTO) 10.9 K/uL (3.6-10.2)
[2020-08-07 08:06] LABS: BILIRUBIN,DIRECT 0.7 mg/dL (0.0-0.2); BILIRUBIN,TOTAL 1.6 mg/dL (0.2-1.0); CREATININE 0.9 mg/dL (0.6-1.3); POTASSIUM 3.8 mmol/L (3.5-5.1); TOTAL PROTEIN, SERUM 7.3 g/dL (6.4-8.2)
--- NOTE | 2020-08-07 08:30 | NUR ---
RECEIVED PATIENT IN BED AWAKE ALERT AND ORIENTED NO C/O ABDOMINAL PAIN AT THIS TIME HE HAS A HÉCTOR INTACT WITH A SCANTY AMOUNT OF SEROUS LIQUID EATING BREAKFAST AND TOLERATING IT WELL CALL LIGHTS AND PERSONAL BELONGINGS ARE WITHIN EASY REACH AT THIS TIME WILL CONTINUE TO OBSERVE
[2020-08-07] MEDS: AMLODIPINE 5 MG TABLET PO SCH (08:52)
[2020-08-07] MEDS: LOSARTAN POTASSIUM 50 MG TABLET PO SCH (08:55)
[2020-08-07] MEDS ORDERED: PANTOPRAZOLE SODIUM 40 MG VIAL IV SCH (09:00)
[2020-08-07 11:50] VITALS: BP 137/86
--- NOTE | 2020-08-07 13:39 | NUR ---
PATIENT SEEN AND EXAMINED BY DELMAR GOOD PROVIDER WITH D/C PLANNING PER THE TRAINING AND DEVELOPMENT HEAD HE WILL CONFIRM WITH DR IGLESIAS IF PATIENT CAN BE DISCHARGED TODAY PATIENT AWARE AWAITING FOR ORDERS.
[2020-08-07] MEDS ORDERED: HYDR-3972 PO (14:10)
--- NOTE | 2020-08-07 14:21 | NUR ---
DELMAR CARLIN STATED THAT PATIENT THAT DR IGLESIAS HAS CLEARED PATIENT FOR DISCHARGE AWAITING FOR FINAL DISCHARGE PAPERS.
--- NOTE | 2020-08-07 15:30 | NUR ---
PATIENT DISCHARGED IN SATISFACTORY CONDITION WITH DISCHARGE INSTRUCTIONS PATIENT DISCHARGED MEDICATION WAS SENT ELECTRONICALLY BY THE PROVIDER TO PATIENTS OWN PHARMACY AND HE IS AWARE TO PACKER OPERATOR [employer] REMAINS INTACT WITH SEROUS DRAINAGE PATIENT STATED AWARE OF HOW TO EMPTY AND RECORD REEDUCATED PATIENT WAS ALSO INSTRUCTED TO FOLLOW UP WITH DR IGLESIAS AT HIS OFFICE AND HE STATED THAT HE ALREADY HAS APPOINTMENT FOR 08/18/20 PATIENT ESCORTED OUT IN SATISFACTORY CONDITION.
== END 2020-08-07 15:30 | disposition home or self-care (01) | DRG 861 ==
LOC: ER 23:48 → MEDSURG3 08-06 05:01
PROVIDERS: ADMIT Nurse Practitioner Family; ATTEND Nurse Practitioner Family
DX: G89.18 Other acute postprocedural pain (principal); D72.829 Elevated white blood cell count, unspecified; R10.9 Unspecified abdominal pain; I10 Essential (primary) hypertension; K43.9 Ventral hernia without obstruction or gangrene; K57.30 Diverticulosis of large intestine without perforation or abscess without bleeding; I70.90 Unspecified atherosclerosis; Z20.822 Contact with and (suspected) exposure to COVID-19; Z90.49 Acquired absence of other specified parts of digestive tract; K40.90 Unilateral inguinal hernia, without obstruction or gangrene, not specified as recurrent
CPT/HCPCS: 36415; 78445; 83605; 83690; 83735; 84100; 85025; 87040; 93005; A9537; C9113; G0378; J1170; J2270; J2405; J2543; J7050; J7060; Q9967

== ENCOUNTER 2020-12-21 17:50 | Inpatient (IN) | payer MEDICAID, OTHER ==
[~2020-12-21] VITALS: Ht 182.9 cm; Wt 90.7 kg
[~2020-12-21 17:50] MED LIST changes: +HYDR-3972 PO
[2020-12-21] MEDS ORDERED: CLON0.1T PO (18:22)
[2020-12-21] MEDS ORDERED: LOSA1TAB3 PO (18:22)
[2020-12-21 18:46] LABS: MEAN CORPUSCULAR HEMOGLOBIN 31.5 uug (23.8-33.4); MEAN CORPUSCULAR VOLUME 92.2 fL (73.0-96.2); PLATELET COUNT (AUTO) 302 K/uL (152-348)
[2020-12-21 18:49] LABS: CREATININE 0.9 mg/dL (0.6-1.3); POTASSIUM 3.5 mmol/L (3.5-5.1)
[2020-12-21 19:00] LABS: BILIRUBIN,TOTAL 0.8 mg/dL (0.2-1.0); TOTAL PROTEIN, SERUM 8.7 g/dL (6.4-8.2)
[2020-12-21] MEDS ORDERED: HYDROMORPHONE 1 MG/1 ML DISP.SYRIN IV ONE ×2 (19:00→23:00)
[2020-12-21] MEDS ORDERED: LIDOCAINE VISCUS 2% 15 ML UDC MM ONE (19:00)
[2020-12-21] MEDS ORDERED: ONDANSETRON 4 MG/2 ML VIAL IV ONE (19:00)
[2020-12-21] MEDS ORDERED: MAG HYDROX/AL HYDROX/SIMETH 30 ML LIQUID UDC PO ONE (19:00)
[2020-12-21] MEDS ORDERED: IOHEXOL 350 100 ML INFUS..BTL ONE (19:06)
[2020-12-21] MEDS ORDERED: SWABABLE VALVE TRANSFER SET EA MC ONE (19:06)
[2020-12-21] MEDS ORDERED: HYDROMORPHONE 1 MG/1 ML DISP.SYRIN ONE ×2 (19:12→23:08)
[2020-12-21] MEDS ORDERED: MAG HYDROX/AL HYDROX/SIMETH 30 ML LIQUID UDC ONE (19:13)
[2020-12-21] MEDS ORDERED: ONDANSETRON 4 MG/2 ML VIAL ONE (19:13)
[2020-12-21] MEDS ORDERED: LIDOCAINE VISCUS 2% 15 ML UDC ONE (19:14)
[2020-12-21] MEDS ORDERED: NITROGLYCERIN OINT 1 GM PACKET TP ONE ×2 (19:15→19:18)
[2020-12-21] MEDS ORDERED: LABETALOL HCL 100 MG/20 ML VIAL IV ONE (19:15)
[2020-12-21] MEDS ORDERED: LABETALOL HCL 100 MG/20 ML VIAL ONE (19:17)
[2020-12-21] MEDS ORDERED: IV NORMAL SALINE 250 ML IV ONE (19:56)
--- NOTE | 2020-12-21 21:50 | NUR ---
Angeline WELLSmanager analysis from [email or web address] requested information on patient, clinical information given verbally.
--- NOTE | 2020-12-21 22:30 | NUR ---
Paged [facility] doctor control board operator, waiting for Dr Vanegas to call back.
--- NOTE | 2020-12-21 22:33 | NUR ---
Patient is resting comfortably in bed, using his cellphone. No acute distress noted.
--- NOTE | 2020-12-21 22:44 | NUR ---
MD Celeste called back, connected to MD Joel Fierro.
--- NOTE | 2020-12-21 22:52 | NUR ---
Patient will be assigned to room 323 telemetry per PRISCILLA Correa.
--- NOTE | 2020-12-21 22:59 | NUR ---
Patient c/o of 5/10 L sided chest pain. MD Joel Fierro made aware. New orders pending.
[2020-12-21] MEDS ORDERED: ASPIRIN 81 MG TAB.CHEW PO ONE (23:00)
[2020-12-21] MEDS ORDERED: ASPIRIN 81 MG TAB.CHEW ONE (23:02)
--- NOTE | 2020-12-21 23:15 | NUR ---
Report given to PRISCILLA PASTRANA.
--- NOTE | 2020-12-21 23:50 | NUR ---
Pt. admitted to telemetry 323, under care of Dr. Celeste Belongs List completed
[2020-12-22] VITALS: BP 151/101
--- NOTE | 2020-12-22 00:12 | NUR ---
Admitted patient to Tele unit from ER accompanied by staff nurse via yves.Dx.Nstemi AALox4.On Ra.No c/o SOB.Iv on left hand and right AC 20 g patent and intact. C/o mild chest pain.Morphine IVP given with good effect.NSR on Tele. Skin is intact. Will continue to monitor.
[2020-12-22] MEDS ORDERED: ONDANSETRON 4 MG/2 ML VIAL IV PRN (00:30)
[2020-12-22] MEDS ORDERED: NITROGLYCERIN 0.4 MG/TAB BOTTLE SL PRN (00:30)
[2020-12-22] MEDS ORDERED: ACETAMINOPHEN 325 MG TABLET PO PRN (00:30)
[2020-12-22] MEDS: MORPHINE SULFATE 2 MG/1 ML DISP.SYRIN IV PRN ×3 (01:42→13:30)
[2020-12-22] MEDS ORDERED: ZOLPIDEM 5 MG TABLET PO ONE (02:45)
--- NOTE | 2020-12-22 02:46 | NUR ---
Patient awake c/o unable to sleep. Per patient he hasn't been able to sleep for couple nights and insisting to give him sleeping pill. He stated he used take ambien.Dr Graves notified with new order received noted and carried out.
[2020-12-22 04:00] VITALS: BP 130/77
--- NOTE | 2020-12-22 06:55 | NUR ---
Patient awake.No acute distress noted. Denies chest pain. Will endorse to incoming shift.
[2020-12-22] MEDS ORDERED: PANTOPRAZOLE SODIUM 40 MG TABLET.DR PO SCH ×2 (07:00→08:10)
[2020-12-22 07:42] LABS: HEMATOCRIT 41.9 % (36.7-47.1); MEAN CORPUSCULAR HEMOGLOBIN 31.9 uug (23.8-33.4); MEAN CORPUSCULAR VOLUME 92.1 fL (73.0-96.2); PLATELET COUNT (AUTO) 254 K/uL (152-348)
[2020-12-22 07:43] LABS: CREATININE 1.1 mg/dL (0.6-1.3); POTASSIUM 3.6 mmol/L (3.5-5.1)
[2020-12-22 07:49] LABS: MAGNESIUM 1.7 mg/dL (1.8-2.4); PHOSPHOROUS 3.5 mg/dL (2.5-4.9)
[2020-12-22] MEDS ORDERED: POTASSIUM CHLORIDE 20 MEQ POWDER PACKET PO ONE (08:15)
[2020-12-22] MEDS ORDERED: POTASSIUM CHLORIDE 20 MEQ TAB.PRT.SR PO ONE (08:30)
--- NOTE | 2020-12-22 08:45 | NUR ---
received awake alert and oriented, denies of shortness of breath, tele SR, states has epigstric pain- to chest area- medicated with morphine 2 mg iv as ordered, instructions on plan of care- verbalized understanding, Dr Whyte here and saw pt- see notes
[2020-12-22] MEDS ORDERED: ASPIRIN EC 325 MG TABLET.DR PO SCH ×2 (09:00)
[2020-12-22] MEDS ORDERED: METOPROLOL SUCCINATE XL 25 MG TAB.SR.24H PO SCH (09:00)
[2020-12-22] MEDS ORDERED: ASPIRIN EC 81 MG TABLET.DR PO SCH (09:00)
[2020-12-22] MEDS ORDERED: LOSARTAN POTASSIUM 50 MG TABLET PO SCH (09:00)
[2020-12-22] MEDS: MAGNESIUM SULFATE/D5W 100 ML IV SCH ×2 (09:17→10:41)
--- NOTE | 2020-12-22 10:00 | NUR ---
ambulated in [address]- tolerated well, denies of chest pain, no shortness of breath
[2020-12-22 11:17] VITALS: BP 154/90
[2020-12-22] MEDS ORDERED: ATOR20TA PO (11:42)
[2020-12-22] MEDS ORDERED: LOSA50TA3 PO (11:42)
[2020-12-22] MEDS ORDERED: METO-356 PO (11:42)
[2020-12-22] MEDS ORDERED: PANT40TA2 PO (11:42)
[2020-12-22] MEDS ORDERED: ASPI-618 PO (11:42)
--- NOTE | 2020-12-22 12:30 | NUR ---
ECHO done- pt to go home
--- NOTE | 2020-12-22 14:00 | NUR ---
discharge instructions given including prescriptions, verbalized understanding- states will be picked up by friend, denies of chest pain, saline lock x 2 removed- no swelling/redness noted on sites
--- NOTE | 2020-12-22 14:35 | NUR ---
escorted to lobby where friend is waiting with all belongings, pt in stable condition
[2020-12-22] MEDS ORDERED: ATORVASTATIN 20 MG TABLET PO SCH (21:00)
== END 2020-12-22 14:35 | disposition home or self-care (01) | DRG 243 ==
LOC: ER 17:52 → TELE3 22:50
PROVIDERS: ADMIT Nurse Practitioner Acute Care; ATTEND Nurse Practitioner Acute Care
DX: K21.9 Gastro-esophageal reflux disease without esophagitis (principal); I71.2 Thoracic aortic aneurysm, without rupture; D3A.8 Other benign neuroendocrine tumors; I16.9 Hypertensive crisis, unspecified; D72.829 Elevated white blood cell count, unspecified; E83.42 Hypomagnesemia; I10 Essential (primary) hypertension; F17.210 Nicotine dependence, cigarettes, uncomplicated; Z90.49 Acquired absence of other specified parts of digestive tract; Z20.822 Contact with and (suspected) exposure to COVID-19; R77.8 Other specified abnormalities of plasma proteins; F10.21 Alcohol dependence, in remission
CPT/HCPCS: 36415; 70030-TC; 83690; 83735; 84100; 85025; 85610; 93005; 93307; A4663; G0378; J1170; J2270; J2405; J3475; J3490; J7050; Q9967

== ENCOUNTER 2021-03-13 10:22 | Emergency (ER) | payer OTHER ==
[~2021-03-13] VITALS: Ht 172.7 cm; Wt 81.6 kg
[~2021-03-13 10:22] MED LIST changes: -AMLO-212 PO; +ASPI-618 PO; +ATOR20TA PO; -CIPR-262 PO; -CLON0.1T PO; -HYDR-3972 PO; +METO-356 PO; -METR500T PO; +PANT40TA2 PO
[2021-03-13] MEDS ORDERED: MORPHINE SULFATE 4 MG/1 ML DISP.SYRIN IV ONE ×2 (11:15→15:15)
[2021-03-13] MEDS ORDERED: ONDANSETRON 4 MG/2 ML VIAL IV ONE (11:15)
[2021-03-13] MEDS ORDERED: MORPHINE SULFATE 4 MG/1 ML DISP.SYRIN ONE ×2 (11:22→15:24)
[2021-03-13] MEDS ORDERED: ONDANSETRON 4 MG/2 ML VIAL ONE (11:23)
[2021-03-13 11:31] LABS: HEMATOCRIT 45.5 % (36.7-47.1); MEAN CORPUSCULAR HEMOGLOBIN 32.7 uug (23.8-33.4); MEAN CORPUSCULAR VOLUME 94.4 fL (73.0-96.2); PLATELET COUNT (AUTO) 241 K/uL (152-348)
[2021-03-13 11:36] LABS: CREATININE 0.9 mg/dL (0.6-1.3); POTASSIUM 3.8 mmol/L (3.5-5.1)
[2021-03-13 11:42] LABS: BILIRUBIN,TOTAL 0.5 mg/dL (0.2-1.0)
[2021-03-13] MEDS ORDERED: LOSARTAN POTASSIUM 50 MG TABLET PO SCH (12:45)
[2021-03-13] MEDS ORDERED: LOSARTAN POTASSIUM 50 MG TABLET ONE (13:00)
--- NOTE | 2021-03-13 13:49 | NUR ---
Patient on continuous monitoring. Denies any chest pain or SOB. BP left arm 195/126 and BP right arm 191/121. 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
[2021-03-13] MEDS ORDERED: IOHEXOL 350 100 ML INFUS..BTL ONE (14:24)
[2021-03-13] MEDS ORDERED: SWABABLE VALVE TRANSFER SET EA MC ONE (14:24)
[2021-03-13] MEDS ORDERED: IV NORMAL SALINE 250 ML IV ONE (14:24)
[2021-03-13] MEDS ORDERED: ACET-3478 PO (16:16)
[2021-03-13] MEDS ORDERED: HYDR-3980 PO (16:16)
[2021-03-13 16:35] VITALS: BP 155/98
--- NOTE | 2021-03-13 16:38 | NUR ---
Patient discharged to home in stable condition. Written and verbal after care instructions given. Patient verbalizes understanding of instructions. Stressed follow up or return to ER for worsening s/s. Instructed patient not to drive. Verbalized understanding
== END 2021-03-13 16:37 | disposition home or self-care (01) ==
LOC: ER 10:24
DX: R10.11 Right upper quadrant pain (principal); R10.13 Epigastric pain; I10 Essential (primary) hypertension; Z90.49 Acquired absence of other specified parts of digestive tract; D49.0 Neoplasm of unspecified behavior of digestive system
CPT/HCPCS: 36415; 71045; 74174; 80053; 83690; 84484; 85025; 96374; 96375; 96376; 99285; J2270 ×2; J2405; Q9967; 70030-TC; J7050